=== PATIENT | female | born 1955 | race Caucasian/White ===

== ENCOUNTER 2016-10-08 11:48 | Outpatient (CLI) | payer OTHER ==
[2016-10-08 13:26] LABS: #Basophils 0.1 thou/uL (0.0-0.2); #Eosinphils 0.1 thou/uL (0.0-0.7); #Lymphocytes 2.5 thou/uL (1.20-3.40); #Monocytes 0.6 thou/uL (0.11-0.59); #Neutrophils 5.5 thou/uL (1.40-6.50); %Basophils 0.8 % (0.0-1.0); %Lymphocytes 28.4 % (21.0-51.0); Hematocrit 45.5 % (36.0-47.0); Mean Platelet Volume 8.1 fL (7.4-10.4); Red Blood Cell (RBC) Count 5.04 mill/uL (4.20-5.40); White Blood Cell (WBC) Count 8.8 thou/uL (4.8-10.8)
[2016-10-08 14:12] LABS: ALT (SGPT) 19 U/L (0-55); AST (SGOT) 9 U/L (5-34); Alkaline Phosphatase 119 U/L (40-150); Anion Gap 14 mmol/L (10-20); BUN (Urea Nitrogen) 19 mg/dL (9.8-20.1); Calc. Creatinine Clearance 0 mL/min (70-130); Calcium 9.2 mg/dL (7.8-10.44); Carbon Dioxide 25 mmol/L (23-31); Chloride 104 mmol/L (98-107); Estimated GFR-MDRD 54; Globulin 3.5 g/dL (2.4-3.5); LDL Cholesterol, Calculated 129 mg/dL; Protein, Total 7.5 g/dL (5.8-8.1)
== END 2016-10-08 11:49 | disposition home or self-care (01) ==
LOC: NAV LAB 11:48
PROVIDERS: ATTEND Family Medicine
DX: E03.9 Hypothyroidism, unspecified (principal); J44.9 Chronic obstructive pulmonary disease, unspecified; I10 Essential (primary) hypertension; F41.9 Anxiety disorder, unspecified
CPT/HCPCS: 36415; 80053; 80061; 84443; 85025

== ENCOUNTER 2017-02-11 11:37 | Outpatient (CLI) | payer OTHER ==
--- NOTE | 2017-02-11 14:50 | RAD ---
TWO VIEWS RIGHT HIP: Indication: Right hip pain. Comparison: None. FINDINGS: No acute fracture or subluxation is evident. There is mild degenerative arthrosis of the right hip. IMPRESSION: No acute osseous abnormality. POS: [facility]
--- NOTE | 2017-02-11 15:12 | RAD ---
EXAM: LUMBAR SPINE 3 VIEWS: HISTORY: Lumbar radiculopathy. COMPARISON: None. CORRELATION: Two-view chest radiograph 12/27/16. FINDINGS: There are 5 lumbar-type vertebral bodies. Stable mild compression fracture at L2. Sclerosis of the superior end plate of L3 likely on the basis of degenerative change. No acute fractures. No spond ylolisthesis of spondylosis. There are degenerative changes of the posterior elements at L5-L6 and L6-S1. Possible pseudoarthrosis of the right L6 ala with the sacrum. IMPRESSION: Chronic changes as above. POS: [facility]
== END 2017-02-11 11:38 | disposition home or self-care (01) ==
LOC: NAV RAD 11:37
PROVIDERS: ATTEND Family Medicine
DX: M47.27 Other spondylosis with radiculopathy, lumbosacral region (principal); M16.11 Unilateral primary osteoarthritis, right hip
CPT/HCPCS: 72100

== ENCOUNTER 2019-01-07 18:29 | Inpatient (IN) | payer OTHER ==
[2019-01-07] MEDS ORDERED: Senokot S 8.6-50 MG TAB PO PRN (20:37)
[2019-01-07] MEDS ORDERED: Diazepam 5 MG TAB PO PRN (20:37)
[2019-01-07] MEDS ORDERED: Calcium Carbonate 500 MG ChewTAB PO PRN (20:40)
[2019-01-07] MEDS ORDERED: Sodium Chloride 0.9% 10 ML ONE (21:22)
[2019-01-07] MEDS: Amlodipine 10 MG TAB PO SCH (21:29)
[2019-01-07] MEDS: hydrALAZINE 25 MG TAB PO SCH (21:30)
[2019-01-07] MEDS: Baclofen 10 MG TAB PO SCH (21:30)
[2019-01-07] MEDS: cefTRIAXone\\ROCEPHIN 2 GM VIAL IVPB SCH (21:30)
[2019-01-07] MEDS ORDERED: Sodium Chloride 0.9% 20 ML ONE (22:06)
[2019-01-07] MEDS: Vancomycin HCl 1 GM in Sodium Chloride 0.9% 250 ML 250 ML IVPB SCH (22:13)
[2019-01-07] MEDS: Vancomycin HCl 500 MG in Sodium Chloride 0.9% 100 ML IVPB SCH (23:12)
[2019-01-08] MEDS: Levothyroxine Sodium 100 MCG TAB PO SCH (05:22)
[2019-01-08] MEDS: HYDROcodone/Acetaminophen 10/325 mg Tablet PO PRN (05:23)
[2019-01-08 05:42] LABS: #Basophils 0.1 thou/uL (0.0-0.2); #Eosinphils 0.1 thou/uL (0.0-0.7); #Lymphocytes 1.6 thou/uL (1.20-3.40); #Monocytes 0.7 thou/uL (0.11-0.59); #Neutrophils 7.6 thou/uL (1.40-6.50); %Basophils 1.2 % (0.0-1.0); %Eosinophils 1.2 % (0.0-10.0); %Lymphocytes 16.2 % (21.0-51.0); %Monocytes 7.2 % (0.0-10.0); %Neutrophils 74.3 % (42.0-75.0); Hemoglobin 14.5 g/dL (12.0-16.0); Mean Corpuscular HGB CONC 30.8 g/dL (32.0-36.0); Mean Corpuscular Hemoglobin 27.8 pg (27.0-31.0); Mean Corpuscular Volume 90.2 fL (78.0-98.0); Mean Platelet Volume 7.4 fL (7.4-10.4); Platelet Count 320 thou/uL (130-400); RBC Distribution Width 14.5 % (11.5-14.5); Red Blood Cell (RBC) Count 5.22 mill/uL (4.20-5.40); White Blood Cell (WBC) Count 10.2 thou/uL (4.8-10.8)
[2019-01-08 05:46] LABS: ALT (SGPT) 58 U/L (8-55); AST (SGOT) 13 U/L (5-34); Albumin 3.7 g/dL (3.4-4.8); Alkaline Phosphatase 106 U/L (40-150); Anion Gap 14 mmol/L (10-20); BUN (Urea Nitrogen) 18 mg/dL (9.8-20.1); Bilirubin, Total 0.8 mg/dL (0.2-1.2); Calc. Creatinine Clearance 97 mL/min (70-130); Calcium 9.6 mg/dL (7.8-10.44); Carbon Dioxide 28 mmol/L (23-31); Chloride 103 mmol/L (98-107); Estimated GFR-MDRD 51; Globulin 3.2 g/dL (2.4-3.5); Glucose 103 mg/dL (80-115); Potassium 3.9 mmol/L (3.5-5.1); Protein, Total 6.9 g/dL (6.0-8.3); Sodium 141 mmol/L (136-145)
[2019-01-08] MEDS: Baclofen 10 MG TAB PO SCH ×2 (08:31→20:44)
[2019-01-08] MEDS: Lisinopril 20 MG TAB PO SCH (08:31)
[2019-01-08] MEDS: Enoxaparin Sodium 40 MG/0.4 ML SYRINGE SC SCH (08:31)
[2019-01-08] MEDS: hydrALAZINE 25 MG TAB PO SCH ×3 (08:32→20:44)
[2019-01-08] MEDS: Vancomycin HCl 1 GM in Sodium Chloride 0.9% 250 ML 250 ML IVPB SCH ×2 (09:39→21:23)
[2019-01-08] MEDS: Vancomycin HCl 500 MG in Sodium Chloride 0.9% 100 ML IVPB SCH ×2 (09:40→21:24)
[2019-01-08] MEDS: Ibuprofen 200 MG TAB PO PRN (10:18)
--- NOTE | 2019-01-08 10:37 | HP ---
CHIEF COMPLAINT: Back pain. HISTORY OF PRESENT ILLNESS: The patient is a 63-year-old female, who initially presented to [facility] with 2 weeks of worsening back pain. She had noted that she started needing to use a cane due to her back pain and that progressed to using a walker and then she progressed to not being able to walk at all. She noted that her back pain was nonradiating and sharp in nature. She denied fever, chills, trauma, night sweats, bowel incontinence. The patient was admitted for pain control and underwent an MRI which showed findings suspicious for osteomyelitis or diskitis at L2-L3. The patient was started on IV vancomycin and Rocephin. Neurosurgery was consulted, who advised proceeding with IV antibiotics as no surgery was indicated at that time. She had a consult with Dr. Berumen who agreed with the antibiotic choices, antibiotic should run through 02/16. The patient has been transferred to [facility] for IV antibiotics and physical therapy. ALLERGIES: NO KNOWN DRUG ALLERGIES. PAST MEDICAL HISTORY: 1. Hypertension. 2. History of pelvic fracture. 3. Hypothyroidism. PAST SURGICAL HISTORY: None. FAMILY HISTORY: Mother has history of osteoporosis. SOCIAL HISTORY: The patient denies tobacco, alcohol, and other drug use. MEDICATIONS: 1. [place] 10/325 1 to 2 tabs p.o. q.6 hours p.r.n. pain. 2. Amlodipine 10 mg p.o. daily. 3. Baclofen 20 mg p.o. b.i.d. 4. Rocephin 2 g IV daily. 5. Diazepam 5 mg p.o. 4 times a day as needed. 6. Hydralazine 25 mg p.o. t.i.d. 7. Toradol 50 mg IV q.6 hours p.r.n. pain. 8. Levothyroxine 100 mcg p.o. q.a.m. 9. Lisinopril 40 mg p.o. daily. 10. Metoprolol succinate 100 mg p.o. daily. 11. IV vancomycin with pharmacy to dose. REVIEW OF SYSTEMS: GENERAL: Negative for fever, chills, or night sweats. EYES: Negative for vision changes or eye pain. HENT: Negative for sore throat, rhinorrhea, and nasal congestion. CARDIOVASCULAR: Negative for chest pain, palpitations, orthopnea, and PND. RESPIRATORY: Negative for shortness of breath, wheezing and cough. GI: Negative for abdominal pain, nausea, vomiting, or diarrhea. : Negative for dysuria or polyuria. MUSCULOSKELETAL: Positive for nonradiating back pain today, worse on the right than the left, and generalized weakness. SKIN: Negative for rashes or lesions/ PSYCHIATRIC: Negative for anxiety or depression. NEUROLOGIC: Negative for syncope, seizure, numbness, and tingling. PHYSICAL EXAMINATION: VITAL SIGNS: Temp 97.8, pulse 60, respiration rate 20, O2 saturation 95% on room air, blood pressure 135/86. GENERAL: The patient is awake, alert, oriented, in no acute distress. EYES: Pupils are equal, round, reactive to light and accommodation, extraocular muscles are intact. HENT: Oropharynx and nasopharynx are without erythema or exudate. NECK: Supple without lymphadenopathy, thyromegaly or bruits. CARDIOVASCULAR: Regular rate and rhythm without murmurs, gallops, or rubs. LUNGS: Clear to auscultation bilaterally without wheezing or rhonchi. ABDOMEN: Soft, nontender, nondistended, with bowel sounds present. EXTREMITIES: There is no clubbing, cyanosis, or edema. MUSCULOSKELETAL: The patient has full range of motion of all extremities with back pain noted on most movements. SKIN: Negative for rashes or jaundice. NEUROLOGIC: Cranial nerves 2 through 12 are grossly intact, deep tendon reflexes 2/4. Unable to assess gait at this time. PSYCHIATRIC: The patient displays an appropriate mood and affect. LABORATORY DATA: 1. CBC: WBCs 10.2, hemoglobin 14.5, hematocrit 47.1, platelet count 320. 2. CMP: Sodium 141, potassium 3.9, chloride 103, bicarb 28, BUN 18, creatinine 1.08, glucose 103, calcium 9.6, total bilirubin 0.8, AST 13, ALT 58, total protein 6.9, albumin 3.7. 3. CRP 3.26 which is down from 4.6 on the 7th. ASSESSMENT AND PLAN: 1. Osteomyelitis of the lumbar spine: The patient will continue on vancomycin and Rocephin until 02/16. Pharmacy will continue to dose the vancomycin. The patient will get weekly CBC, CMP, and CRP per Dr. Berumen' recommendations. 2. Generalized deconditioning: The patient will begin to work with PT and OT to help regain her mobility. 3. Intractable low back pain: The patient has multiple medications on to help with back pain including baclofen for her muscle spasms, [place] for severe pain. Tramadol is also available. 4. Hypertension: We will continue her home medications and adjust as needed. 5. Hypothyroidism: Continue thyroid supplementation. 6. Deep vein thrombosis prophylaxis with Lovenox. Job ID: [id number]
[2019-01-08] MEDS: cefTRIAXone\\ROCEPHIN 2 GM VIAL IVPB SCH (20:43)
[2019-01-08] MEDS: Amlodipine 10 MG TAB PO SCH (20:45)
[2019-01-09] MEDS: Levothyroxine Sodium 100 MCG TAB PO SCH (05:24)
[2019-01-09] MEDS: HYDROcodone/Acetaminophen 10/325 mg Tablet PO PRN (08:40)
[2019-01-09] MEDS: hydrALAZINE 25 MG TAB PO SCH ×3 (08:45→20:37)
[2019-01-09] MEDS: Lisinopril 20 MG TAB PO SCH (08:46)
[2019-01-09] MEDS: Baclofen 10 MG TAB PO SCH ×2 (08:47→20:37)
[2019-01-09] MEDS: Enoxaparin Sodium 40 MG/0.4 ML SYRINGE SC SCH (08:49)
[2019-01-09 09:44] LABS: Vancomycin, Trough 23.2 ug/mL
[2019-01-09] MEDS: Ketorolac Tromethamine 30 MG/ML VIAL IVP PRN (10:07)
[2019-01-09] MEDS: Vancomycin HCl 500 MG in Sodium Chloride 0.9% 100 ML IVPB SCH ×2 (10:13→21:26)
[2019-01-09] MEDS: Vancomycin HCl 1 GM in Sodium Chloride 0.9% 250 ML 250 ML IVPB SCH ×2 (10:14→21:27)
--- NOTE | 2019-01-09 12:44 | PRG ---
DATE OF SERVICE: 01/09/2019 SUBJECTIVE: The patient is a 63-year-old female who is at [facility] for long-term IV antibiotics for osteomyelitis in the spine. Her primary complaint this morning is back spasms and that she is almost scared to get up and sit on the side of the bed or sit up in the chair because she thinks that the spasms will be coming. She does have baclofen on board and has noticed an improvement with that. OBJECTIVE: VITAL SIGNS: Temperature 98.3, pulse 62, respiration rate 16, O2 saturation 96% on room air, and blood pressure 143/84. GENERAL: The patient is awake, alert, oriented, in no acute distress. CARDIOVASCULAR: Regular rate and rhythm without murmurs, gallops, or rubs. LUNGS: Clear to auscultation bilaterally without wheezing or rhonchi. ABDOMEN: Soft, nontender, and nondistended. Bowel sounds present. EXTREMITIES: There is no clubbing, cyanosis, or edema. PSYCHIATRIC: The patient displays appropriate mood and affect. LABORATORY DATA: Vanc trough was 23.2. ASSESSMENT AND PLAN: 1. Osteomyelitis of the lumbar spine: The patient will continue IV vancomycin and Rocephin until February 16. She is getting weekly CBC, CMP, CRP, and routine vanc troughs. 2. Generalized deconditioning: We will continue physical therapy as the patient has not been ambulating much. 3. Back pain and back spasming: The patient has multiple medications including [place], baclofen, and Toradol to help with pain and spasms. 4. Hypertension: We will continue current medications for blood pressure control. We anticipate that some of her hypertension currently is due to her pain. 5. Hypothyroidism: Continue supplementation. 6. Deep venous thrombosis prophylaxis with Lovenox. Job ID: [id number]
[2019-01-09] MEDS: Amlodipine 10 MG TAB PO SCH (20:37)
[2019-01-09] MEDS: cefTRIAXone\\ROCEPHIN 2 GM VIAL IVPB SCH (20:38)
[2019-01-09] MEDS: Ibuprofen 200 MG TAB PO PRN (20:38)
[2019-01-10] MEDS: Ibuprofen 200 MG TAB PO PRN ×2 (04:11→16:09)
[2019-01-10] MEDS: Baclofen 10 MG TAB PO SCH ×2 (09:21→20:57)
[2019-01-10] MEDS: Enoxaparin Sodium 40 MG/0.4 ML SYRINGE SC SCH (09:22)
[2019-01-10] MEDS: hydrALAZINE 25 MG TAB PO SCH ×3 (09:23→20:57)
[2019-01-10] MEDS: Lisinopril 20 MG TAB PO SCH (09:23)
[2019-01-10] MEDS: Levothyroxine Sodium 100 MCG TAB PO SCH (09:43)
[2019-01-10] MEDS: Vancomycin HCl 1 GM in Sodium Chloride 0.9% 250 ML 250 ML IVPB SCH ×2 (09:45→21:47)
[2019-01-10] MEDS: Vancomycin HCl 500 MG in Sodium Chloride 0.9% 100 ML IVPB SCH ×2 (09:46→21:47)
[2019-01-10] MEDS: Diazepam 5 MG TAB PO PRN (16:10)
[2019-01-10] MEDS: Amlodipine 10 MG TAB PO SCH (20:58)
[2019-01-10] MEDS: cefTRIAXone\\ROCEPHIN 2 GM VIAL IVPB SCH (20:58)
[2019-01-11] MEDS: Diazepam 5 MG TAB PO PRN (00:35)
[2019-01-11] MEDS: Levothyroxine Sodium 100 MCG TAB PO SCH (05:58)
[2019-01-11] MEDS: Ibuprofen 200 MG TAB PO PRN (06:01)
[2019-01-11] MEDS: hydrALAZINE 25 MG TAB PO SCH ×3 (09:17→21:09)
[2019-01-11] MEDS: Lisinopril 20 MG TAB PO SCH (09:18)
[2019-01-11] MEDS: Baclofen 10 MG TAB PO SCH ×2 (09:19→21:09)
[2019-01-11] MEDS: Enoxaparin Sodium 40 MG/0.4 ML SYRINGE SC SCH (09:21)
[2019-01-11] MEDS: Vancomycin HCl 1 GM in Sodium Chloride 0.9% 250 ML 250 ML IVPB SCH ×2 (10:53→21:42)
[2019-01-11] MEDS: Vancomycin HCl 500 MG in Sodium Chloride 0.9% 100 ML IVPB SCH ×2 (10:54→21:42)
[2019-01-11] MEDS: HYDROcodone/Acetaminophen 10/325 mg Tablet PO PRN (15:25)
[2019-01-11] MEDS: cefTRIAXone\\ROCEPHIN 2 GM VIAL IVPB SCH (21:07)
[2019-01-11] MEDS: Amlodipine 10 MG TAB PO SCH (21:09)
[2019-01-12] MEDS: Ibuprofen 200 MG TAB PO PRN (05:20)
[2019-01-12] MEDS: Levothyroxine Sodium 100 MCG TAB PO SCH (05:20)
[2019-01-12] MEDS: HYDROcodone/Acetaminophen 10/325 mg Tablet PO PRN (08:08)
[2019-01-12] MEDS: Baclofen 10 MG TAB PO SCH ×2 (08:11→20:32)
[2019-01-12] MEDS: Lisinopril 20 MG TAB PO SCH (08:13)
[2019-01-12] MEDS: hydrALAZINE 25 MG TAB PO SCH ×3 (08:13→20:32)
[2019-01-12] MEDS: Enoxaparin Sodium 40 MG/0.4 ML SYRINGE SC SCH (08:14)
[2019-01-12] MEDS: Vancomycin HCl 1 GM in Sodium Chloride 0.9% 250 ML 250 ML IVPB SCH ×2 (09:23→21:11)
[2019-01-12] MEDS: Vancomycin HCl 500 MG in Sodium Chloride 0.9% 100 ML IVPB SCH ×2 (09:33→21:11)
--- NOTE | 2019-01-12 13:11 | PRG ---
DATE OF SERVICE: 01/11/2019 SUBJECTIVE: The patient is a 63-year-old female, who is at [facility] for IV antibiotics for osteomyelitis in the lumbar spine. The patient has an area on her dorsal left foot that is erythematous and tender. She notes that this began about a day ago and it is a little bit better than before. She does not remember any specific injury to this area. OBJECTIVE: VITAL SIGNS: Temperature 96.7, pulse 62, respiration rate 16, O2 saturation 96% on room air, and blood pressure 158/94. GENERAL: The patient is awake, alert, oriented, in no acute distress. CARDIOVASCULAR: Regular rate and rhythm without murmurs, gallops, or rubs. LUNGS: Clear to auscultation bilaterally without wheezing or rhonchi. ABDOMEN: Soft, nontender, nondistended. Bowel sounds present. EXTREMITIES: There is no clubbing or cyanosis. SKIN: There is a small silver dollar sized area of erythema on the dorsal aspect of the patient's left foot that has no warmth, but is mildly tender to palpation. There is no fluctuance or induration either. Homans sign is negative. PSYCHIATRIC: The patient displays an appropriate mood and affect. ASSESSMENT AND PLAN: 1. Osteomyelitis: We will continue IV vancomycin and Rocephin until February 16. The patient will be due for repeat labs this coming . 2. Hypertension: Continue current medications. 3. Hypothyroidism: Continue supplementation. 4. Left foot pain: This does not resemble gout and the pain is beginning to improve. We will continue to monitor, and if it worsens, may consider an ultrasound of the lower extremity. Pulses are palpable, however. 5. Generalized deconditioning: Continue therapy in hopes to get the patient up and moving a bit more. 6. Back pain and spasms: The patient will continue current pain medication regimen along with muscle relaxers. 7. Deep venous thrombosis prophylaxis with Lovenox. Job ID: [id number]
--- NOTE | 2019-01-12 13:18 | PRG ---
DATE OF SERVICE: 01/12/2019 SUBJECTIVE: The patient is a 63-year-old female, who is undergoing IV antibiotics for osteomyelitis. The patient states that her left foot pain is much better this morning and the redness has gone away. OBJECTIVE: VITAL SIGNS: Temp 96.2, pulse 70, respiration rate 18, O2 saturation 96% on room air, blood pressure 128/78. GENERAL: The patient is awake, alert, and oriented, in no acute distress. CARDIOVASCULAR: Regular rate and rhythm without murmurs, gallops, or rubs. LUNGS: Clear to auscultation bilaterally without wheezing or rhonchi. ABDOMEN: Soft, nontender, nondistended with bowel sounds present. EXTREMITIES: There is no clubbing, cyanosis, or edema. PSYCHIATRIC: The patient displays an appropriate mood and affect, but she does appear anxious at time when talking about the potential for back spasms. ASSESSMENT AND PLAN: 1. Osteomyelitis of the lumbar spine: Continue IV vanc and Rocephin until February 16. Vanc troughs were ordered through pharmacy. 2. Generalized deconditioning: The patient will continue therapy. She does begin to get anxious when thinking about getting up as she is anticipating having back pain and spasming, but there are p.r.n. medications for anxiety available. 3. Back pain: Continue [place] and Toradol as well as baclofen for spasms. 4. Hypertension: We will continue current medications. 5. Hypothyroidism. Continue supplementation. 6. Foot pain: This has improved. 7. Deep vein thrombosis prophylaxis. We will continue Lovenox. 8. Dr. Lia Castro will be on-call for me starting tomorrow, January 13 through January 18. Job ID: [id number] MTDD
[2019-01-12] MEDS: Ketorolac Tromethamine 30 MG/ML VIAL IVP PRN (14:23)
[2019-01-12] MEDS: Amlodipine 10 MG TAB PO SCH (20:30)
[2019-01-12] MEDS: cefTRIAXone\\ROCEPHIN 2 GM VIAL IVPB SCH (20:32)
[2019-01-13] MEDS: Ibuprofen 200 MG TAB PO PRN ×2 (05:47→20:23)
[2019-01-13] MEDS: Levothyroxine Sodium 100 MCG TAB PO SCH (05:47)
[2019-01-13] MEDS ORDERED: Ketorolac Tromethamine 30 MG/ML VIAL IVP PRN (06:31)
[2019-01-13] MEDS: Lisinopril 20 MG TAB PO SCH (08:56)
[2019-01-13] MEDS: Enoxaparin Sodium 40 MG/0.4 ML SYRINGE SC SCH (08:57)
[2019-01-13] MEDS: Baclofen 10 MG TAB PO SCH ×2 (08:57→20:29)
[2019-01-13] MEDS: hydrALAZINE 25 MG TAB PO SCH ×3 (08:57→20:22)
[2019-01-13] MEDS: Vancomycin HCl 1 GM in Sodium Chloride 0.9% 250 ML 250 ML IVPB SCH ×2 (08:58→21:22)
[2019-01-13] MEDS: Vancomycin HCl 500 MG in Sodium Chloride 0.9% 100 ML IVPB SCH ×2 (08:58→21:22)
[2019-01-13] MEDS: HYDROcodone/Acetaminophen 10/325 mg Tablet PO PRN (09:05)
[2019-01-13 10:32] LABS: Vancomycin, Random 47.4 ug/mL (See Comment)
[2019-01-13] MEDS: Diazepam 5 MG TAB PO PRN (12:21)
--- NOTE | 2019-01-13 12:51 | PRG ---
DATE OF SERVICE: 01/13/2019 SUBJECTIVE: Ms. English is a 63-year-old female, who is presently admitted at [facility] for prolonged IV antibiotics due to lumbar osteomyelitis/ diskitis and severe deconditioning. She is doing well today. Denies any acute changes overnight. The patient denies any fevers. Reports pain is controlled with oral medications. Occasionally requires IV medication with physical therapy. However, after physical therapy this morning did not require IV medication. Reports last bowel movement was a couple of days ago (01/06/19 per nursing notes). Discussed complications related to constipation and pain medication used. Discussed options of stool softeners and laxatives. OBJECTIVE: VITAL SIGNS: Temperature 98.1, pulse 73 and sinus rhythm, blood pressure 141/83, respiratory rate 16, O2 saturations on room air 96%. GENERAL: The patient is awake, alert, and oriented to person, place, time, and event. No acute distress noted. The patient is lying comfortably in bed. HEENT: Extraocular muscles intact. Normal conjunctivae. Pupils are equal, round, and reactive. CARDIOVASCULAR: Regular rate and rhythm. No murmurs appreciated. LUNGS: Clear to auscultation bilaterally. No wheezing, crackles, or rhonchi appreciated. ABDOMEN: Soft, nontender, and nondistended. Bowel sounds present. EXTREMITIES: Full range of motion of her extremities. No clubbing, cyanosis, or edema noted. PSYCHIATRIC: The patient has appropriate mood and affect. Maintained good eye contact. No anxiety noted. Very cheerful with good outlook. ASSESSMENT AND PLAN: 1. Lumbar osteomyelitis/diskitis: The patient is currently receiving IV vancomycin along with Rocephin for treatment. Dr. Berumen has been following remotely. We will continue to trend labs including CBC and CRP for signs of worsening and improvement of infection. Currently, Pharmacy is dosing vancomycin. Most recent random vancomycin at 01/13/2019 at 09:24 a.m., was 47.4 but was improperly collected during Vancomycin infusion. The patient appears to be tolerating treatment well without side effects. Continues to show no signs or symptoms of systemic infection. 2. Severe deconditioning: Continued daily physical therapy. She is slowly continuing to improve. Yesterday, she was able to walk the halls with a walker. Currently requires a lot of assistance. We will continue to closely monitor the patient's progress. PT daily. 3. Pain control: The patient is currently on narcotics, NSAIDs, and Tylenol for pain control. Currently controlled with p.o. pain medication, occasionally will require IV pain medication after physical therapy. Concern for opioid related constipation. Discussed with the patient extensively at bedside. We will start daily stool softeners. Does have p.r.n. laxatives as needed. 4. Hypertension: The patient currently stable on home medications. However, blood pressure elevated this morning. We will continue to monitor throughout the day and adjust home blood pressure medications as needed for goal of blood pressure less than 130/80. 5. Hypothyroidism. We will continue home dose levothyroxine. Monitor TSH as needed. 6. Foot pain and rash: Has resolved, no longer an issue. 7. Deep venous thrombosis prophylaxis. The patient currently on Lovenox. Will continue to encourage ambulation. SCDs if patient not able to ambulate. Tariq Score = 5 ( reduced mobility, acute infection, BMI >30). DISPOSITION: Will continue IV antibiotics until February 16. Currently, the patient unable to perform ADLs without max assistance. Trend CBC, CMP, and CRP weekly. Add TSH this week. Job ID: [id number] MTDD
[2019-01-13] MEDS: Amlodipine 10 MG TAB PO SCH (20:21)
[2019-01-13] MEDS: cefTRIAXone\\ROCEPHIN 2 GM VIAL IVPB SCH (20:22)
[2019-01-13] MEDS: Docusate 100 MG CAP PO PRN (20:23)
[2019-01-14] MEDS: Ibuprofen 200 MG TAB PO PRN ×3 (05:14→20:03)
[2019-01-14] MEDS: Levothyroxine Sodium 100 MCG TAB PO SCH (05:14)
[2019-01-14] MEDS: Baclofen 10 MG TAB PO SCH ×2 (08:18→20:02)
[2019-01-14] MEDS: Enoxaparin Sodium 40 MG/0.4 ML SYRINGE SC SCH (08:18)
[2019-01-14] MEDS: Lisinopril 20 MG TAB PO SCH (08:19)
[2019-01-14] MEDS: hydrALAZINE 25 MG TAB PO SCH ×3 (08:19→20:03)
[2019-01-14] MEDS: HYDROcodone/Acetaminophen 10/325 mg Tablet PO PRN (08:24)
[2019-01-14 09:51] LABS: Vancomycin, Trough 23.1 ug/mL
[2019-01-14] MEDS ORDERED: Vancomycin HCl 1 GM in Sodium Chloride 0.9% 250 ML 250 ML IVPB SCH (10:00)
[2019-01-14] MEDS: Vancomycin HCl 500 MG in Sodium Chloride 0.9% 100 ML IVPB SCH ×3 (10:11→22:05)
[2019-01-14] MEDS: Vancomycin HCl 1 GM in Sodium Chloride 0.9% 250 ML 250 ML IVPB SCH (10:11)
[2019-01-14] MEDS: Vancomycin HCl 750 MG in Sodium Chloride 0.9% 250 ML 250 ML IVPB SCH ×2 (10:36→23:01)
[2019-01-14] MEDS: Diazepam 5 MG TAB PO PRN ×2 (13:15→22:04)
[2019-01-14] MEDS: Amlodipine 10 MG TAB PO SCH (20:02)
[2019-01-14] MEDS: Docusate 100 MG CAP PO PRN (20:03)
[2019-01-14] MEDS: cefTRIAXone\\ROCEPHIN 2 GM VIAL IVPB SCH (20:03)
[2019-01-14] MEDS ORDERED: Polyethylene Glycol 3350 17 GM Packet PO PRN (20:54)
[2019-01-14] MEDS: Docusate 100 MG CAP PO SCH (21:05)
--- NOTE | 2019-01-14 22:57 | PRG ---
DATE OF SERVICE: 01/14/2019 INTRODUCTION: Mrs. English is a 63-year-old female who is admitted for prolonged IV antibiotics due to lumbar osteomyelitis/diskitis and severe deconditioning. INTERVAL HISTORY: Mrs. English reports she is doing well today. No changes overnight. The patient was able to ambulate 150 steps with physical therapy. No back spasms. Only used IV pain medications once. Otherwise, pain was controlled with p.o. medications. The patient has not had a bowel movement yet. The patient was reluctant yesterday to start stool softener. Encouraged the patient to start stool softener today. Discussed risk for narcotics-induced constipation and therefore complications related. Questions answered. LABS: Vanc trough pending. PHYSICAL EXAMINATION: VITAL SIGNS: Temperature 97.7; pulse 66, normal sinus rhythm; respiratory rate 20; O2 saturation 96% on room air; blood pressure 160/85. GENERAL: The patient is awake, alert, and oriented to person, place, time, and event. No acute distress noted. Non-ill appearing. The patient is lying comfortably in bed. HEENT: Atraumatic, normocephalic. Extraocular muscles intact. Normal conjunctivae. Pupils equal, round, and reactive to light. Moist mucous membranes. CARDIOVASCULAR: Regular rate and rhythm. No murmurs appreciated. LUNGS: Clear to auscultation bilaterally. No wheezes, crackles, or rhonchi appreciated. ABDOMEN: Soft, nontender, and nondistended. Bowel sounds present in all 4 quadrants. EXTREMITIES: Full range of motion in all 4 extremities. No clubbing, cyanosis , or edema noted. PSYCHIATRIC: Appropriate mood and affect. Mood is happy. Maintains eye contact. Good outlook for today. ASSESSMENT AND PLAN: 1. Lumbar osteomyelitis/diskitis: Will continue receiving IV vancomycin and Rocephin for treatment. Labs to be repeated and trended tomorrow morning. Non- ill appearing. No signs or symptoms of systemic infection. Vancomycin is being dosed by Pharmacy. Repeat troughs to be drawn later this morning. Medication would be adjusted based on trough value with goal of 20. IV antibiotics to be continued until 02/16/2019. 2. Severe deconditioning: Continue daily physical therapy. The patient progressed well yesterday, able to ambulate 150 feet. Continue to encourage the patient to ambulate. 3. Pain control: Currently controlled on p.o. medications. Discussed narcotics-induced constipation. The patient to start stool softener b.i.d. 4. Hypertension: Blood pressure elevated 140s, 160 systolic. Diastolics averaging in the 80s. Discussed changing some home blood pressure medications for optimal control since the patient would be hospitalized for a long duration. We will attempt to set goal less 130/80. Patient ok with plan. 5. Hypothyroidism: TSH to be added to labs for morning. Continue current dose of levothyroxine. The patient remains asymptomatic. 6. Prophylaxis. The patient is currently on Lovenox for DVT prophylaxis as well as p.r.n. use of antacid for any GI issues. DISPOSITION: Continue current admission status. Continue IV antibiotics until 02/16/2019. Repeat labs . Job ID: [id number] MTDD
[2019-01-15] MEDS: HYDROcodone/Acetaminophen 10/325 mg Tablet PO PRN ×3 (00:22→18:01)
[2019-01-15] MEDS: Ibuprofen 200 MG TAB PO PRN ×2 (05:19→21:02)
[2019-01-15] MEDS: Levothyroxine Sodium 100 MCG TAB PO SCH (05:19)
[2019-01-15 05:24] LABS: #Basophils 0.1 thou/uL (0.0-0.2); #Eosinphils 0.3 thou/uL (0.0-0.7); #Lymphocytes 1.7 thou/uL (1.20-3.40); #Monocytes 0.7 thou/uL (0.11-0.59); #Neutrophils 5.2 thou/uL (1.40-6.50); %Eosinophils 3.4 % (0.0-10.0); %Lymphocytes 21.5 % (21.0-51.0); %Monocytes 8.3 % (0.0-10.0); %Neutrophils 65.8 % (42.0-75.0); Hemoglobin 12.1 g/dL (12.0-16.0); Mean Corpuscular HGB CONC 30.9 g/dL (32.0-36.0); Mean Corpuscular Volume 90.3 fL (78.0-98.0); Mean Platelet Volume 7.8 fL (7.4-10.4); Platelet Count 242 thou/uL (130-400); RBC Distribution Width 13.7 % (11.5-14.5); Red Blood Cell (RBC) Count 4.32 mill/uL (4.20-5.40); White Blood Cell (WBC) Count 7.8 thou/uL (4.8-10.8)
[2019-01-15 05:41] LABS: ALT (SGPT) 19 U/L (8-55); AST (SGOT) 10 U/L (5-34); Albumin 3.2 g/dL (3.4-4.8); Alkaline Phosphatase 76 U/L (40-150); Anion Gap 13 mmol/L (10-20); BUN (Urea Nitrogen) 18 mg/dL (9.8-20.1); Bilirubin, Total 0.5 mg/dL (0.2-1.2); CRP (Inflammatory) 4.28 mg/dL (= or < 0.5); Calc. Creatinine Clearance 116 mL/min (70-130); Calcium 9.1 mg/dL (7.8-10.44); Carbon Dioxide 24 mmol/L (23-31); Chloride 107 mmol/L (98-107); Estimated GFR-MDRD 63; Globulin 2.8 g/dL (2.4-3.5); Glucose 93 mg/dL (80-115); Potassium 3.6 mmol/L (3.5-5.1); Sodium 140 mmol/L (136-145)
[2019-01-15] MEDS: Baclofen 10 MG TAB PO SCH ×2 (08:39→20:58)
[2019-01-15] MEDS: Chlorthalidone 25 MG TAB PO SCH (08:39)
[2019-01-15] MEDS: hydrALAZINE 25 MG TAB PO SCH ×3 (08:40→20:58)
[2019-01-15] MEDS: Docusate 100 MG CAP PO SCH ×2 (08:40→20:58)
[2019-01-15] MEDS: Enoxaparin Sodium 40 MG/0.4 ML SYRINGE SC SCH (08:40)
[2019-01-15] MEDS: Lisinopril 20 MG TAB PO SCH (08:40)
[2019-01-15] MEDS: Vancomycin HCl 750 MG in Sodium Chloride 0.9% 250 ML 250 ML IVPB SCH (10:38)
[2019-01-15] MEDS: Vancomycin HCl 500 MG in Sodium Chloride 0.9% 100 ML IVPB SCH ×2 (10:38→23:19)
[2019-01-15] MEDS ORDERED: Lidocaine 5% Patch TD PRN (10:52)
[2019-01-15] MEDS ORDERED: Lidocaine 5% Patch TD SCH (11:30)
[2019-01-15] MEDS: valACYclovir 500 MG TAB PO SCH ×2 (11:32→20:56)
[2019-01-15] MEDS: Nystatin Cream 15 GM TUBE TOP SCH ×2 (11:33→20:57)
--- NOTE | 2019-01-15 12:05 | PRG ---
DATE OF SERVICE: 01/15/2019 INTRODUCTION: Ms. English is a 63-year-old female, who is admitted for prolonged IV antibiotics due to lumbar osteomyelitis/diskitis and severe deconditioning. Skilled day #8. INTERVAL HISTORY: Ms. English reports she continues to do well today. No complications overnight, reports that she slept well, however, did have significant pain after showering this morning. Continues to do well with physical therapy. Mild back spasms this morning after showering and prolonged standing. Was able to ambulate to the bathroom, back to the floor yesterday without much complications. Pain is still controlled with p.o. pain medications; however, she is concerned with current state of pain along with physical therapy later today that pain might not be controlled. Discussed options with the patient. The patient does report a bowel movement yesterday that was soft and formed. She is also concerned about prodrome symptoms of fever blisters on her lips. She does have a history. No lesions at present. The patient is also concerned about a red itchy patch to upper gluteal cleft that has been present over the past few days. No discharge, ulceration, or drainage. PHYSICAL EXAMINATION: VITAL SIGNS: Temperature 97.7; pulse 60, normal sinus rhythm; respiratory rate 18; 96% on room air; blood pressure 157/85. GENERAL: The patient is awake, alert, and oriented to person, place, time, and event. Non-ill appearing. Lying comfortably in bed. Able to roll to left and right side this morning. HEENT: Atraumatic, normocephalic. Extraocular muscles intact. Pupils equal, round, and reactive to light. Normal conjunctivae. Moist mucous membranes noted. CARDIOVASCULAR: Regular rate and rhythm on exam today. No murmurs appreciated. LUNGS: Clear to auscultation bilaterally. No wheezes, crackles, or rhonchi appreciated. Good air movement. No evidence of respiratory distress. ABDOMEN: Soft, nontender, and nondistended. Bowel sounds present in all 4 quadrants. EXTREMITIES: Full range of motion in all 4 extremities. No clubbing, cyanosis , or edema noted. SKIN: No evidence of ulcerations, papules, or pustules to lips. Significant erythema as well as satellite lesions noted to superior gluteal cleft. Sharp borders noted. Evidence of excoriation noted. PSYCHIATRIC: Appropriate mood and affect. Does appear to be in pain currently. Note, good outlook for today. LABORATORY DATA: 1. CBC: White blood cell count 7.8, hemoglobin 12.1, hematocrit 39.0, MCV 90.3 , and platelets 242. 2. CMP: Sodium 140, potassium 3.6, chloride 107, carbon dioxide 24, BUN 18, creatinine 0.90, glucose 93. AST 10, ALT 19, albumin 3.2. 3. TSH 1.4976. 4. C-reactive protein 4.28. 5. Vancomycin trough on 01/14/2019 at 0900 hours of 23.1. ASSESSMENT AND PLAN: 1. Lumbar osteomyelitis/diskitis: Tolerating treatment well. We will continue with IV vancomycin and Rocephin. The patient to complete antibiotics on 02/16/2019. Vancomycin at goal. Continue to dose by Pharmacy. Labs reviewed and stable. Still no evidence of systemic infection. 2. Severe deconditioning: The patient continues to improve. Encourage to sit in chair and ambulate frequently throughout the day today. Physical Therapy to come back shortly. 3. Pain control: We will continue current p.o. pain medications and IV pain medications as needed. We will add lidocaine patch. 4. Constipation: The patient with one bowel movement yesterday. We will continue stool softeners daily. Discuss goal of soft-formed stools. MiraLAX p.r.n. 5. Hypertension: Blood pressure not at goal. We will add chlorthalidone to blood pressure regimen. Continue to closely monitor. 6. Hypothyroidism: TSH at goal. Continue current dose of levothyroxine. 7. BMI of 40: The patient now on 4 blood pressure medications would be concerned due to BMI and history of uncontrolled hypertension, undiagnosed obstructive sleep apnea. We will need sleep study for followup. 8. Herpes labialis: Currently with prodrome symptoms, we will treat with valacyclovir 2 g b.i.d. x1 day. 9. [place] intertrigo: We will treat with topical nystatin cream. Add powder if needed. If resistant, we will convert to oral fluconazole treatment. The patient to watch for other areas of outbreak. Discuss possible oral contamination. Hygiene efforts discussed. 10. Prophylaxis: The patient currently on Lovenox for deep vein thrombosis prophylaxis as well as p.r.n. use of antacids for GI issues. Sequential compression devices while not ambulating. Ambulation recommended at least t.i.d. now that the patient able to tolerate. DISPOSITION: Continue current admission status. IV antibiotics until 2018. Labs to be repeated weekly. Job ID: [id number] MTDD
[2019-01-15] MEDS: Diazepam 5 MG TAB PO PRN (13:37)
[2019-01-15] MEDS: cefTRIAXone\\ROCEPHIN 2 GM VIAL IVPB SCH (20:55)
[2019-01-15] MEDS: Amlodipine 10 MG TAB PO SCH (20:58)
[2019-01-15] MEDS: Lidocaine Patch Removal 1 EACH TOP SCH (20:58)
[2019-01-15] MEDS ORDERED: valACYclovir 500 MG TAB PO SCH (21:00)
[2019-01-15 22:15] LABS: Vancomycin, Trough 20.6 ug/mL
[2019-01-16] MEDS: Vancomycin HCl 750 MG in Sodium Chloride 0.9% 250 ML 250 ML IVPB SCH ×2 (00:32→11:35)
[2019-01-16] MEDS: Levothyroxine Sodium 100 MCG TAB PO SCH (05:38)
[2019-01-16] MEDS: Diazepam 5 MG TAB PO PRN ×2 (05:54→13:13)
[2019-01-16] MEDS: valACYclovir 500 MG TAB PO SCH (08:59)
[2019-01-16] MEDS: Docusate 100 MG CAP PO SCH ×2 (09:02→21:03)
[2019-01-16] MEDS: Baclofen 10 MG TAB PO SCH ×2 (09:04→21:03)
[2019-01-16] MEDS: Lisinopril 20 MG TAB PO SCH (09:04)
[2019-01-16] MEDS: hydrALAZINE 25 MG TAB PO SCH ×3 (09:05→21:04)
[2019-01-16] MEDS: Chlorthalidone 25 MG TAB PO SCH (09:06)
[2019-01-16] MEDS: Enoxaparin Sodium 40 MG/0.4 ML SYRINGE SC SCH (09:07)
[2019-01-16] MEDS: Nystatin Cream 15 GM TUBE TOP SCH ×2 (09:08→21:03)
[2019-01-16] MEDS: Vancomycin HCl 500 MG in Sodium Chloride 0.9% 100 ML IVPB SCH ×2 (10:27→22:57)
[2019-01-16] MEDS: HYDROcodone/Acetaminophen 10/325 mg Tablet PO PRN (16:14)
--- NOTE | 2019-01-16 18:36 | PRG ---
DATE OF SERVICE: 01/16/2019 INTRODUCTION: Ms. English is a 63-year-old female, who is admitted for prolonged IV antibiotics due to lumbar osteomyelitis/diskitis and severe conditioning. #9. INTERVAL HISTORY: Ms. English reports that she is doing well today. No complaints this morning, slept well overnight. Reports back pain is much better controlled than yesterday. Noted some benefit from lidocaine patch. Not able to use heating pad. Current hospital own heating pad not functioning. The patient is ambulating more frequently without as much assist. Reports fever blister, much improved. PHYSICAL EXAMINATION: VITAL SIGNS: Temperature 97.8; pulse 63, normal sinus rhythm; respiratory rate 20; O2 sat 96% on room air; and blood pressure 124/70. Weight 116.3 kg. GENERAL: The patient is awake, alert, and oriented to person, place, time, and event. Sitting on the edge of the bed, about to have a shower. Non-ill appearing. HEENT: Atraumatic and normocephalic. Extraocular muscles intact. Pupils equal , round, and reactive to light. Normal conjunctivae. Moist mucous membranes noted. CARDIOVASCULAR: Regular rate and rhythm. No murmurs appreciated. LUNGS: Clear to auscultation bilaterally. No wheezes, crackles, or rhonchi. No evidence of respiratory distress. Good air movement. ABDOMEN: Soft, nontender, and nondistended. Bowel sounds present in all 4 quadrants. EXTREMITIES: Full range of motion in all 4 extremities. No clubbing, cyanosis , or edema. PSYCHIATRIC: Appropriate mood and affect. LABORATORY DATA: Vancomycin trough 20.6 drawn on 01/15/2019, at 2155 hours. ASSESSMENT AND PLAN: 1. Lumbar osteomyelitis/diskitis. Etiology unknown at this time. Tolerating empiric treatment well. Will continue with IV vancomycin and Rocephin. Vancomycin trough at goal. Pharmacy to dose. No evidence of systemic infection. 2. Severe deconditioning. The patient continues to improve. 3. Pain control. The patiently currently controlled on p.o. pain medication. Discussed trying to treat all pain with p.o. medications at this time. The patient agrees to use p.o. pain medication. Starting to use adjunctive pain control methods including heat therapy and lidocaine patch. 4. Constipation: Continue daily stool softeners and MiraLax as needed. 5. Hypertension. Blood pressure is now at goal. Continue to monitor. If adjustments needed, we will decrease dose of beta chidi due to intermittent sinus bradycardia. 6. Hypothyroidism. TSH at goal. Continue current dose of levothyroxine. 7. BMI of 40. We will need lifestyle management. Concerned for possible undiagnosed obstructive sleep apnea. Dietary following alongside. 8. Herpes labialis. Treatment completed. We will monitor. Symptoms improved. 9. Shannon intertrigo. Slow improvement with topical nystatin cream. We will continue at least b.i.d., increase to t.i.d. as needed. 10. Prophylaxis. Lovenox for deep venous thrombosis prophylaxis as needed. Antacids for GI issues. SCDs while in bed. The patient encouraged to use IS at bedside frequently throughout the day as well as frequent ambulation. DISPOSITION: Continue current admission status. IV antibiotics until 2018. Labs to be repeated weekly. Encourage ambulation throughout the day. Use adjunctive pain medication. Job ID: [id number] MTD[facility]
[2019-01-16] MEDS: cefTRIAXone\\ROCEPHIN 2 GM VIAL IVPB SCH (21:01)
[2019-01-16] MEDS: Amlodipine 10 MG TAB PO SCH (21:04)
[2019-01-16] MEDS: Lidocaine Patch Removal 1 EACH TOP SCH (22:57)
[2019-01-17] MEDS: Vancomycin HCl 750 MG in Sodium Chloride 0.9% 250 ML 250 ML IVPB SCH ×2 (00:03→11:50)
[2019-01-17] MEDS: Levothyroxine Sodium 100 MCG TAB PO SCH (05:27)
[2019-01-17] MEDS: Ibuprofen 200 MG TAB PO PRN (05:27)
[2019-01-17] MEDS: Baclofen 10 MG TAB PO SCH ×2 (09:32→20:11)
[2019-01-17] MEDS: Chlorthalidone 25 MG TAB PO SCH (09:34)
[2019-01-17] MEDS: Enoxaparin Sodium 40 MG/0.4 ML SYRINGE SC SCH (09:35)
[2019-01-17] MEDS: Docusate 100 MG CAP PO SCH (09:35)
[2019-01-17] MEDS: Lisinopril 20 MG TAB PO SCH (09:36)
[2019-01-17] MEDS: hydrALAZINE 25 MG TAB PO SCH ×3 (09:36→20:11)
[2019-01-17] MEDS: Nystatin Cream 15 GM TUBE TOP SCH ×4 (09:37→20:13)
[2019-01-17 10:35] LABS: Vancomycin, Trough 22.2 ug/mL
[2019-01-17] MEDS: Vancomycin HCl 500 MG in Sodium Chloride 0.9% 100 ML IVPB SCH (10:43)
[2019-01-17] MEDS: Diazepam 5 MG TAB PO PRN (12:21)
--- NOTE | 2019-01-17 12:25 | PRG ---
DATE OF SERVICE: 01/17/2019 INTRODUCTION: Ms. English is a 63-year-old female, who is admitted for prolonged IV antibiotics due to lumbar osteomyelitis/diskitis and severe deconditioning. Skilled day #10. INTERVAL HISTORY: Ms. English reports that she is doing well today. No significant events overnight. No longer requiring IV pain medication. The patient also is keeping up with pain control with [place] 10/325 one capsule p.o. q.6 hours p.r.n. pain. No longer requiring 2 tablets for pain control. The patient report she does not feel like lidocaine was very effective and therefore, requested it to be removed. Still awaiting functional heating pad for heat therapy. Reports yeast infection slowly improving; however, has been going to the bathroom more frequently and feels that the topical cream is being wiped off and not as effective. PHYSICAL EXAMINATION: VITAL SIGNS: Temperature 98.1, heart rate 60 and normal sinus rhythm, blood pressure 137/75, respiratory rate 17, and 95% on room air. GENERAL: The patient is awake, alert, and oriented to person, place, time, and event. She is lying comfortably in bed. Non-ill appearing. HEENT: Atraumatic and normocephalic. Extraocular muscles intact. Pupils are equal, round, and reactive to light. Normal conjunctivae. Moist mucous membranes. CARDIOVASCULAR: Regular rate and rhythm. No murmurs. LUNGS: Clear to auscultation bilaterally. No wheezes, crackles, or rhonchi. No evidence of respiratory distress. ABDOMEN: Soft, nontender, and nondistended. Bowel sounds present. EXTREMITIES: Full range of motion in all 4 extremities. No clubbing, cyanosis , or edema. SKIN: Macular rash still present on superior gluteal cleft. Shallow superficial small ulceration for more blister have erupted. No drainage. No evidence of suprainfection. Rash has improved from bright angry red to now salmon pink in color. Borders still sharp. Involved area is decreasing. PSYCHIATRIC: Appropriate mood and affect. Good outlook for today. LABORATORY DATA: No new. ASSESSMENT AND PLAN: 1. Lumbar osteomyelitis/diskitis: Tolerating empiric therapy well. Continue vancomycin and Rocephin. Pharmacy to continue to dose vancomycin based on trough levels. Recent trough just drawn and still pending. 2. Severe deconditioning: The patient has shown much improvement over the last 3 days. The patient able to ambulate much more; however, still requiring assistance. 3. Pain control: Much improved pain control. We will start to taper narcotics in the near future apparently not requiring 2 tablets of [place], only using 1 tablet at this point, not requiring any IV pain medications. Awaiting functional heating pad to help with adjunctive pain control. We will discontinue lidocaine patch. 4. Constipation: Improved did have 2 bowel movements yesterday. We will continue stool softeners, change to once a day. 5. Hypertension: Blood pressure controlled. No evidence of hypertension. We will continue current treatment. 6. Hypothyroidism: Continue current dose of levothyroxine. 7. BMI of 40: Continue lifestyle management. Outpatient disaster recovery analyst following. Would be concerned for possible undiagnosed obstructive sleep apnea. Will likely need followup as outpatient. 8. Herpes labialis: Resolved. 9. Shannon intertrigo: Improving due to frequency of voiding episodes. We will increase frequency to reapply topical nystatin as needed. 10. Prophylaxis: Lovenox for deep venous thrombosis prophylaxis. Ambulation encouraged. Sequential compression devices while in bed. P.R.N. GI medications in placed. DISPOSITION: Continue current admission status. IV antibiotics until 2018. Continue physical therapy daily. Encourage ambulation frequently throughout the day. Awaiting functional heating pad. Job ID: [id number] [facility]
[2019-01-17] MEDS: Amlodipine 10 MG TAB PO SCH (20:11)
[2019-01-17] MEDS: cefTRIAXone\\ROCEPHIN 2 GM VIAL IVPB SCH (20:11)
[2019-01-17] MEDS: HYDROcodone/Acetaminophen 10/325 mg Tablet PO PRN (20:12)
[2019-01-17] MEDS: Vancomycin HCl 1 GM in Sodium Chloride 0.9% 250 ML 250 ML IVPB SCH (22:02)
[2019-01-18] MEDS: Levothyroxine Sodium 100 MCG TAB PO SCH (05:33)
[2019-01-18] MEDS: Baclofen 10 MG TAB PO SCH ×2 (08:43→20:43)
[2019-01-18] MEDS: Docusate 100 MG CAP PO SCH (08:43)
[2019-01-18] MEDS: Lisinopril 20 MG TAB PO SCH (08:44)
[2019-01-18] MEDS: Enoxaparin Sodium 40 MG/0.4 ML SYRINGE SC SCH (08:44)
[2019-01-18] MEDS: Chlorthalidone 25 MG TAB PO SCH (08:44)
[2019-01-18] MEDS: hydrALAZINE 25 MG TAB PO SCH ×3 (08:44→20:42)
[2019-01-18] MEDS: Nystatin Cream 15 GM TUBE TOP SCH ×4 (08:45→20:44)
[2019-01-18] MEDS: HYDROcodone/Acetaminophen 10/325 mg Tablet PO PRN ×2 (08:52→20:43)
[2019-01-18] MEDS: Vancomycin HCl 1 GM in Sodium Chloride 0.9% 250 ML 250 ML IVPB SCH ×2 (10:35→22:14)
[2019-01-18] MEDS: Diazepam 5 MG TAB PO PRN (17:46)
[2019-01-18] MEDS: Amlodipine 10 MG TAB PO SCH (20:43)
[2019-01-18] MEDS: cefTRIAXone\\ROCEPHIN 2 GM VIAL IVPB SCH (20:44)
[2019-01-19] MEDS: HYDROcodone/Acetaminophen 10/325 mg Tablet PO PRN ×3 (01:18→20:29)
[2019-01-19] MEDS: Levothyroxine Sodium 100 MCG TAB PO SCH (05:50)
[2019-01-19] MEDS: Baclofen 10 MG TAB PO SCH ×2 (08:17→20:28)
[2019-01-19] MEDS: Lisinopril 20 MG TAB PO SCH (08:18)
[2019-01-19] MEDS: hydrALAZINE 25 MG TAB PO SCH ×3 (08:18→20:30)
[2019-01-19] MEDS: Diazepam 5 MG TAB PO PRN (08:18)
[2019-01-19] MEDS: Chlorthalidone 25 MG TAB PO SCH (08:18)
[2019-01-19] MEDS: Docusate 100 MG CAP PO SCH (08:19)
[2019-01-19] MEDS: Enoxaparin Sodium 40 MG/0.4 ML SYRINGE SC SCH (08:19)
[2019-01-19] MEDS: Nystatin Cream 15 GM TUBE TOP SCH ×4 (08:25→20:28)
[2019-01-19 10:30] LABS: Vancomycin, Trough 19.6 ug/mL
[2019-01-19] MEDS: Vancomycin HCl 1 GM in Sodium Chloride 0.9% 250 ML 250 ML IVPB SCH ×2 (10:56→22:01)
[2019-01-19] MEDS: Ketorolac Tromethamine 30 MG/ML VIAL IVP PRN (14:10)
--- NOTE | 2019-01-19 14:22 | PRG ---
DATE OF SERVICE: 01/19/2019 SUBJECTIVE: The patient is a 63-year-old female, who is at [facility] for IV antibiotics for osteomyelitis in the lumbar spine. The patient overnight started having more severe back pain. She stated that she has been doing very well in the past several days and then yesterday, she suddenly started having severe spasms and increased pain that made it difficult to move. She states that this morning she has not tried to sit up yet in anticipation of her back hurting. She denies any new fever or chills. OBJECTIVE: VITAL SIGNS: Temperature 96.0, pulse 55, respiration rate 18, O2 saturation 98% on room air, and blood pressure 142/81. GENERAL: The patient is awake, alert, and oriented, in no acute distress. CARDIOVASCULAR: Regular rate and rhythm without murmurs, gallops, or rubs. LUNGS: Clear to auscultation bilaterally without wheezing or rhonchi. ABDOMEN: Soft, nontender, and nondistended. Bowel sounds are present. EXTREMITIES: There is no clubbing, cyanosis, or edema. SKIN: No rashes or jaundice is noted. MUSCULOSKELETAL: The patient has tenderness to palpation in the lower back region. LABORATORY DATA: Vanc trough 19.6. ASSESSMENT AND PLAN: 1. Osteomyelitis/diskitis of the lumbar spine: We will continue Rocephin and vancomycin. Vanc trough is within range. We will continue weekly labs. 2. Back pain: The patient's Toradol has fallen off since she arrived here. She will restart the Toradol today as she has had good relief from her pain in the past with it. Continue baclofen for the muscle spasms and Bruno for more severe pain. 3. Severe deconditioning: It was reported that the patient has been doing much better and has been able to get up and ambulate a little bit better. However, she did have a setback yesterday evening and throughout the night with increased pain, which is preventing her from getting up out of bed without significant assistance. We will continue therapy. 4. Constipation: Stable. 5. Hypertension: BP is stable. We will continue to monitor. 6. Hypothyroidism: Continue levothyroxine as recent TSH was within normal range. 7. Deep vein thrombosis prophylaxis: We will continue Lovenox for deep vein thrombosis prophylaxis and SCDs while in bed. 8. The patient will need to continue IV antibiotics until 02/16/2019. Continue therapy and increase ambulation. Job ID: [id number]
[2019-01-19] MEDS: Amlodipine 10 MG TAB PO SCH (20:29)
[2019-01-19] MEDS: cefTRIAXone\\ROCEPHIN 2 GM VIAL IVPB SCH (20:30)
[2019-01-20] MEDS: Levothyroxine Sodium 100 MCG TAB PO SCH (05:20)
[2019-01-20] MEDS: HYDROcodone/Acetaminophen 10/325 mg Tablet PO PRN ×3 (06:10→19:46)
[2019-01-20] MEDS: Ketorolac Tromethamine 30 MG/ML VIAL IVP PRN (08:54)
[2019-01-20] MEDS: Enoxaparin Sodium 40 MG/0.4 ML SYRINGE SC SCH (08:58)
[2019-01-20] MEDS: Nystatin Cream 15 GM TUBE TOP SCH ×4 (08:58→19:47)
[2019-01-20] MEDS: Chlorthalidone 25 MG TAB PO SCH (09:01)
[2019-01-20] MEDS: Docusate 100 MG CAP PO SCH (09:02)
[2019-01-20] MEDS: Baclofen 10 MG TAB PO SCH ×2 (09:02→19:46)
[2019-01-20] MEDS: Lisinopril 20 MG TAB PO SCH (09:02)
[2019-01-20] MEDS: hydrALAZINE 25 MG TAB PO SCH ×3 (09:03→19:46)
[2019-01-20] MEDS: Vancomycin HCl 1 GM in Sodium Chloride 0.9% 250 ML 250 ML IVPB SCH ×2 (11:38→21:55)
[2019-01-20] MEDS: Diazepam 5 MG TAB PO PRN (15:35)
[2019-01-20] MEDS: cefTRIAXone\\ROCEPHIN 2 GM VIAL IVPB SCH (19:45)
[2019-01-20] MEDS: Amlodipine 10 MG TAB PO SCH (19:46)
--- NOTE | 2019-01-20 21:24 | PRG ---
DATE OF SERVICE: 01/20/2019 SUBJECTIVE: The patient is a 63-year-old female, with osteomyelitis and diskitis of the spine, who is at [facility] for long-term IV antibiotics. The patient states that she is feeling much better this morning. Her back pain is controlled and she is not having back spasms. OBJECTIVE: VITAL SIGNS: Temperature 98.1, pulse 62, respiratory rate 18, O2 saturation 97% on room air, and blood pressure 135/87. GENERAL: The patient is awake, alert, oriented, and in no acute distress. CARDIOVASCULAR: Regular rate and rhythm without murmurs, gallops, or rubs. LUNGS: Clear to auscultation bilaterally without wheezing or rhonchi. ABDOMEN: Soft, nontender, and nondistended. Bowel sounds present. EXTREMITIES: There is no clubbing, cyanosis, or edema. PSYCHIATRIC: The patient displays appropriate mood and affect. ASSESSMENT AND PLAN: 1. Osteomyelitis/diskitis of the spine: We will continue IV vancomycin and Rocephin until February 16. The patient has vancomycin trough being drawn by Pharmacy. 2. Severe deconditioning: The patient is continuing to work with Therapy and was able to get up this morning and looks forward to taking a shower. 3. Back pain: This is improved since trying the Toradol yesterday. We will continue current medications. 4. Hypertension: Blood pressure is controlled. 5. Hypothyroidism: Continue supplementation. 6. Deep venous thrombosis prophylaxis with Lovenox. Job ID: [id number]
[2019-01-21] MEDS: Levothyroxine Sodium 100 MCG TAB PO SCH (06:30)
[2019-01-21] MEDS: HYDROcodone/Acetaminophen 10/325 mg Tablet PO PRN ×3 (06:30→23:35)
[2019-01-21] MEDS: Enoxaparin Sodium 40 MG/0.4 ML SYRINGE SC SCH (08:30)
[2019-01-21] MEDS: Chlorthalidone 25 MG TAB PO SCH (08:31)
[2019-01-21] MEDS: Baclofen 10 MG TAB PO SCH ×2 (08:31→20:10)
[2019-01-21] MEDS: Lisinopril 20 MG TAB PO SCH (08:31)
[2019-01-21] MEDS: Nystatin Cream 15 GM TUBE TOP SCH ×4 (08:32→20:17)
[2019-01-21] MEDS: Docusate 100 MG CAP PO SCH (08:32)
[2019-01-21] MEDS: hydrALAZINE 25 MG TAB PO SCH ×3 (08:32→20:10)
[2019-01-21] MEDS: Diazepam 5 MG TAB PO PRN (09:38)
[2019-01-21] MEDS: Vancomycin HCl 1 GM in Sodium Chloride 0.9% 250 ML 250 ML IVPB SCH ×2 (11:36→23:19)
[2019-01-21] MEDS: Ketorolac Tromethamine 30 MG/ML VIAL IVP PRN (13:23)
[2019-01-21] MEDS ORDERED: Fluconazole 100 MG TAB PO SCH (16:00)
--- NOTE | 2019-01-21 16:23 | PRG ---
DATE OF SERVICE: 01/21/2019 SUBJECTIVE: The patient is a 63-year-old female undergoing IV antibiotic therapy for osteomyelitis. The patient states that she was able to get up and walk around the nurses' station twice with physical therapy without stopping. She states that walking is okay and lying down in bed is okay, but her back starts to really hurt when she is sitting up. Her other main concern this afternoon is vaginal irritation, itching, and discharge. She states this feels like previous yeast infections that she has experienced. OBJECTIVE: VITAL SIGNS: Temperature 97.4, pulse 62, respiratory rate 16, O2 saturation 97% on room air, and blood pressure 136/77. GENERAL: The patient is awake, alert, and oriented, in no acute distress. CARDIOVASCULAR: Regular rate and rhythm without murmurs, gallops, or rubs. LUNGS: Clear to auscultation bilaterally without wheezing or rhonchi. ABDOMEN: Soft, nontender, and nondistended. Bowel sounds are present. EXTREMITIES: There is no clubbing, cyanosis, or edema. ASSESSMENT AND PLAN: 1. Osteomyelitis of lumbar spine: We will continue IV vancomycin and Rocephin. The patient is due for repeat labs tomorrow, and these will be ordered. We are monitoring periodic vanc troughs. 2. Vaginal yeast infection: We will treat with fluconazole. 3. Back pain: The patient's pain is fairly well controlled with her current regimen. We will continue this. 4. Severe deconditioning: We will continue therapy services. 5. Hypothyroidism: The patient will continue supplementation. 6. DVT prophylaxis with Lovenox. Job ID: [id number]
[2019-01-21] MEDS: cefTRIAXone\\ROCEPHIN 2 GM VIAL IVPB SCH (20:08)
[2019-01-21] MEDS: Amlodipine 10 MG TAB PO SCH (20:09)
[2019-01-21] MEDS: Ibuprofen 200 MG TAB PO PRN (20:11)
[2019-01-22] MEDS: Levothyroxine Sodium 100 MCG TAB PO SCH (05:10)
[2019-01-22] MEDS: Ibuprofen 200 MG TAB PO PRN (05:10)
[2019-01-22] MEDS: Baclofen 10 MG TAB PO SCH ×2 (08:20→20:42)
[2019-01-22] MEDS: Docusate 100 MG CAP PO SCH (08:21)
[2019-01-22] MEDS: hydrALAZINE 25 MG TAB PO SCH ×3 (08:21→20:42)
[2019-01-22] MEDS: Chlorthalidone 25 MG TAB PO SCH (08:21)
[2019-01-22] MEDS: Nystatin Cream 15 GM TUBE TOP SCH ×4 (08:22→20:42)
[2019-01-22] MEDS: Lisinopril 20 MG TAB PO SCH (08:22)
[2019-01-22] MEDS: Enoxaparin Sodium 40 MG/0.4 ML SYRINGE SC SCH (08:22)
[2019-01-22] MEDS: HYDROcodone/Acetaminophen 10/325 mg Tablet PO PRN ×2 (08:25→23:23)
[2019-01-22] MEDS ORDERED: Fluconazole 100 MG TAB PO SCH (09:00)
[2019-01-22 10:35] LABS: #Basophils 0.1 thou/uL (0.0-0.2); #Eosinphils 0.3 thou/uL (0.0-0.7); #Lymphocytes 2.2 thou/uL (1.20-3.40); #Monocytes 0.5 thou/uL (0.11-0.59); #Neutrophils 4.1 thou/uL (1.40-6.50); %Basophils 1.3 % (0.0-1.0); %Eosinophils 3.7 % (0.0-10.0); %Lymphocytes 30.8 % (21.0-51.0); %Monocytes 7.3 % (0.0-10.0); %Neutrophils 56.9 % (42.0-75.0); Hemoglobin 13.2 g/dL (12.0-16.0); Mean Corpuscular HGB CONC 31.8 g/dL (32.0-36.0); Mean Corpuscular Hemoglobin 28.4 pg (27.0-31.0); Mean Corpuscular Volume 89.4 fL (78.0-98.0); Mean Platelet Volume 7.6 fL (7.4-10.4); Platelet Count 343 thou/uL (130-400); Red Blood Cell (RBC) Count 4.65 mill/uL (4.20-5.40); White Blood Cell (WBC) Count 7.2 thou/uL (4.8-10.8)
[2019-01-22 10:43] LABS: Vancomycin, Trough 21.1 ug/mL
[2019-01-22 10:46] LABS: Anion Gap 15 mmol/L (10-20); BUN (Urea Nitrogen) 21 mg/dL (9.8-20.1); CRP (Inflammatory) 1.77 mg/dL (= or < 0.5); Calc. Creatinine Clearance 92 mL/min (70-130); Calcium 9.5 mg/dL (7.8-10.44); Carbon Dioxide 25 mmol/L (23-31); Chloride 104 mmol/L (98-107); Estimated GFR-MDRD 48; Glucose 97 mg/dL (80-115); Potassium 4.2 mmol/L (3.5-5.1); Sodium 140 mmol/L (136-145)
[2019-01-22] MEDS: Diazepam 5 MG TAB PO PRN (10:56)
[2019-01-22] MEDS: Vancomycin HCl 1 GM in Sodium Chloride 0.9% 250 ML 250 ML IVPB SCH ×2 (11:14→23:15)
--- NOTE | 2019-01-22 18:23 | PRG ---
DATE OF SERVICE: 01/22/2019 SUBJECTIVE: The patient is a 63-year-old female, who is undergoing IV antibiotics until February 16 for osteomyelitis and diskitis of L2-3 vertebrae. The patient was able to get up and ambulate with assistance with physical therapy yesterday, but is still having severe back spasms if she tries to sit up in a chair. OBJECTIVE: VITAL SIGNS: Temperature 97.5, pulse 55, respiration rate 20, O2 saturation 98% on room air, and blood pressure 131/72. GENERAL: The patient is awake, alert, and oriented, in no acute distress. CARDIOVASCULAR: Regular rate and rhythm without murmurs, gallops, or rubs. LUNGS: Clear to auscultation bilaterally without wheezing or rhonchi. ABDOMEN: Soft, nontender, and nondistended. Bowel sounds present. EXTREMITIES: There is no clubbing, cyanosis, or edema. MUSCULOSKELETAL: The patient has some mild tenderness to palpation in the lower lumbar spine. PSYCHIATRIC: The patient displays an appropriate mood and affect. LABORATORY DATA: CBC; WBC 7.2, hemoglobin 13.2, hematocrit 41.6, and platelet count 343. BMP; sodium 140, potassium 4.2, chloride 104, bicarb 25, BUN 21, creatinine 1.14, glucose 97, and calcium 9.5. CRP 1.77. ASSESSMENT AND PLAN: 1. Osteomyelitis and diskitis at L2-3: The patient's CRP is improving showing that the treatment is effective. The patient continues to require IV vancomycin and Rocephin, with her vancomycin being dosed multiple times a day. She also continues to need frequent lab draws to monitor her vanc levels. The patient needs continued skilled care for this reason. 2. Deconditioning: The patient continues to work with therapy to try to improve ambulation and endurance. 3. Hypertension: Blood pressure stable. 4. Back pain: We are continuing current pain medications and she has had improvement with IV Toradol. 5. Hypothyroidism: Continue supplementation. 6. Deep venous thrombosis prophylaxis with Lovenox. Job ID: [id number]
[2019-01-22] MEDS: cefTRIAXone\\ROCEPHIN 2 GM VIAL IVPB SCH (20:41)
[2019-01-22] MEDS: Amlodipine 10 MG TAB PO SCH (20:42)
[2019-01-23] MEDS: Levothyroxine Sodium 100 MCG TAB PO SCH (05:23)
[2019-01-23] MEDS: Ibuprofen 200 MG TAB PO PRN (05:24)
[2019-01-23] MEDS: Enoxaparin Sodium 40 MG/0.4 ML SYRINGE SC SCH (08:50)
[2019-01-23] MEDS: HYDROcodone/Acetaminophen 10/325 mg Tablet PO PRN (08:52)
[2019-01-23] MEDS: Chlorthalidone 25 MG TAB PO SCH (09:00)
[2019-01-23] MEDS: Baclofen 10 MG TAB PO SCH ×2 (09:00→21:00)
[2019-01-23] MEDS: Lisinopril 20 MG TAB PO SCH (09:03)
[2019-01-23] MEDS: Docusate 100 MG CAP PO SCH (09:03)
[2019-01-23] MEDS: hydrALAZINE 25 MG TAB PO SCH ×3 (09:03→21:01)
[2019-01-23] MEDS: Nystatin Cream 15 GM TUBE TOP SCH ×4 (10:06→21:02)
[2019-01-23] MEDS: Vancomycin HCl 1 GM in Sodium Chloride 0.9% 250 ML 250 ML IVPB SCH ×2 (10:28→23:10)
[2019-01-23] MEDS: Ketorolac Tromethamine 30 MG/ML VIAL IVP PRN (14:46)
[2019-01-23] MEDS: cefTRIAXone\\ROCEPHIN 2 GM VIAL IVPB SCH (20:58)
[2019-01-23] MEDS: Amlodipine 10 MG TAB PO SCH (21:01)
[2019-01-23 22:18] LABS: Vancomycin, Trough 18.5 ug/mL
--- NOTE | 2019-01-24 00:25 | PRG ---
DATE OF SERVICE: 01/23/2019 SUBJECTIVE: The patient is a 63-year-old female undergoing IV antibiotics for osteomyelitis of the L2-3 spine. Late yesterday afternoon, she forgot her insurance company has denied further days effective 01/22 but I was able to get extended coverage until January 29. The patient states that yesterday afternoon she had more severe back pain and felt like she did a little bit too much for therapy. The entire time, she has been able to get up and sit up in a chair without back pain and spasming. This morning, she is feeling a little bit better. OBJECTIVE: VITAL SIGNS: Temperature 98, pulse 60, respiration rate 16, O2 saturation 97% on room air, blood pressure 126/80. GENERAL: The patient is awake, alert, and oriented, in no acute distress. CARDIOVASCULAR: Regular rate and rhythm without murmurs, gallops, or rubs. LUNGS: Clear to auscultation bilaterally without wheezing or rhonchi. ABDOMEN: Soft, nontender, nondistended with bowel sounds present. EXTREMITIES: There is no clubbing, cyanosis, or edema. PSYCHIATRIC: The patient displays appropriate mood and affect, though she does become anxious when discussing possible discharge next week. LABORATORY DATA: Vancomycin trough 18.5. ASSESSMENT AND PLAN: 1. Osteomyelitis/diskitis of the lumbar spine: The patient will continue with vancomycin and Rocephin. Her vancomycin trough is currently therapeutic. We will continue to monitor this. She will continue to have weekly labs and antibiotics are scheduled to stop on February 16. 2. Intractable back pain: The patient will continue current medications for back pain and continue the baclofen for muscle spasms. 3. Deconditioning: The patient still needs therapy to improve her endurance and strength. 4. Hypertension: Blood pressure is well controlled. 5. Hypothyroidism: Continue supplementation. 6. Deep vein thrombosis prophylaxis: Continue Lovenox. Job ID: [id number] [facility]
[2019-01-24] MEDS: Levothyroxine Sodium 100 MCG TAB PO SCH (05:26)
[2019-01-24] MEDS: Ibuprofen 200 MG TAB PO PRN ×2 (05:26→23:53)
[2019-01-24] MEDS: Nystatin Cream 15 GM TUBE TOP SCH ×4 (09:44→21:18)
[2019-01-24] MEDS: Enoxaparin Sodium 40 MG/0.4 ML SYRINGE SC SCH (09:44)
[2019-01-24] MEDS: Docusate 100 MG CAP PO SCH (09:45)
[2019-01-24] MEDS: Baclofen 10 MG TAB PO SCH ×2 (09:45→21:16)
[2019-01-24] MEDS: hydrALAZINE 25 MG TAB PO SCH ×3 (09:46→21:17)
[2019-01-24] MEDS: Lisinopril 20 MG TAB PO SCH (09:46)
[2019-01-24] MEDS: Chlorthalidone 25 MG TAB PO SCH (09:47)
[2019-01-24] MEDS: Vancomycin HCl 1 GM in Sodium Chloride 0.9% 250 ML 250 ML IVPB SCH ×2 (10:10→23:12)
[2019-01-24] MEDS ORDERED: Sodium Chloride 0.9% 10 ML ONE (11:17)
[2019-01-24] MEDS: HYDROcodone/Acetaminophen 10/325 mg Tablet PO PRN (14:24)
[2019-01-24] MEDS: Amlodipine 10 MG TAB PO SCH (21:17)
[2019-01-24] MEDS: cefTRIAXone\\ROCEPHIN 2 GM VIAL IVPB SCH (21:17)
[2019-01-25] MEDS: HYDROcodone/Acetaminophen 10/325 mg Tablet PO PRN ×2 (03:09→09:18)
[2019-01-25] MEDS: Levothyroxine Sodium 100 MCG TAB PO SCH (05:27)
[2019-01-25] MEDS: Enoxaparin Sodium 40 MG/0.4 ML SYRINGE SC SCH (09:12)
[2019-01-25] MEDS: Nystatin Cream 15 GM TUBE TOP SCH ×4 (09:13→21:07)
[2019-01-25] MEDS: Docusate 100 MG CAP PO SCH (09:13)
[2019-01-25] MEDS: Lisinopril 20 MG TAB PO SCH (09:14)
[2019-01-25] MEDS: Baclofen 10 MG TAB PO SCH ×2 (09:15→21:06)
[2019-01-25] MEDS: Chlorthalidone 25 MG TAB PO SCH (09:16)
[2019-01-25] MEDS: hydrALAZINE 25 MG TAB PO SCH ×3 (09:18→21:07)
[2019-01-25 10:19] LABS: Vancomycin, Trough 19.4 ug/mL
[2019-01-25] MEDS: Vancomycin HCl 1 GM in Sodium Chloride 0.9% 250 ML 250 ML IVPB SCH ×2 (10:45→23:24)
[2019-01-25] MEDS: Ibuprofen 200 MG TAB PO PRN (10:48)
[2019-01-25] MEDS: Diazepam 5 MG TAB PO PRN (12:16)
[2019-01-25] MEDS: cefTRIAXone\\ROCEPHIN 2 GM VIAL IVPB SCH (21:00)
[2019-01-25] MEDS: Amlodipine 10 MG TAB PO SCH (21:06)
--- NOTE | 2019-01-25 22:22 | PRG ---
DATE OF SERVICE: 01/25/2019 SUBJECTIVE: The patient is a 63-year-old female who is undergoing IV antibiotic therapy for osteomyelitis of the lumbar spine. The patient is not very active yesterday due to her back pain. The patient's nurse is at the bedside currently giving her some [place]. We have tried to help her get up and moving a little bit more today. The patient has no other complaints at this time. OBJECTIVE: VITAL SIGNS: Temperature 97.5, pulse 60, respiration rate 17, O2 saturation 97% on room air, blood pressure 123/86. GENERAL: The patient is awake, alert, oriented, in no acute distress. CARDIOVASCULAR: Regular rate and rhythm without murmurs, gallops, or rubs. LUNGS: Clear to auscultation bilaterally without wheezing or rhonchi. ABDOMEN: Soft, nontender, nondistended. Bowel sounds present. EXTREMITIES: No clubbing, cyanosis, or edema. PSYCHIATRIC: The patient displays appropriate mood and affect. LABORATORY DATA: Vancomycin trough 19.4. ASSESSMENT AND PLAN: 1. Osteomyelitis/diskitis of the lumbar spine: The patient will continue vancomycin and Rocephin until February 16. Continue to follow vancomycin trough. Repeat labs are due on . We will work to try to set up outpatient antibiotics. 2. Intractable back pain: We will continue on her [place] and baclofen as well as NSAIDs. This week we will work toward a good oral pain medicine regimen that she will be able to take at home. 3. Deconditioning: The patient still needs additional therapy to increase ambulation. 4. Hypertension: Well controlled. 5. Hypothyroidism: Continue supplementation. 6. Deep venous thrombosis prophylaxis: Continue Lovenox. Job ID: [id number]
[2019-01-26] MEDS: Diazepam 5 MG TAB PO PRN ×3 (02:35→18:26)
[2019-01-26] MEDS: Levothyroxine Sodium 100 MCG TAB PO SCH (05:33)
[2019-01-26] MEDS: Chlorthalidone 25 MG TAB PO SCH (09:14)
[2019-01-26] MEDS: Docusate 100 MG CAP PO SCH (09:14)
[2019-01-26] MEDS: Baclofen 10 MG TAB PO SCH ×2 (09:18→21:00)
[2019-01-26] MEDS: hydrALAZINE 25 MG TAB PO SCH ×3 (09:19→21:00)
[2019-01-26] MEDS: Lisinopril 20 MG TAB PO SCH (09:24)
[2019-01-26] MEDS: Enoxaparin Sodium 40 MG/0.4 ML SYRINGE SC SCH (09:28)
[2019-01-26] MEDS: Nystatin Cream 15 GM TUBE TOP SCH ×4 (10:23→21:01)
[2019-01-26] MEDS: Vancomycin HCl 1 GM in Sodium Chloride 0.9% 250 ML 250 ML IVPB SCH ×2 (10:54→22:07)
[2019-01-26] MEDS: HYDROcodone/Acetaminophen 10/325 mg Tablet PO PRN ×2 (12:58→21:02)
--- NOTE | 2019-01-26 17:32 | PRG ---
DATE OF SERVICE: 01/26/2019 SUBJECTIVE: The patient is a 63-year-old female who is at [facility] for rehabilitation and IV antibiotics for osteomyelitis and diskitis of the spine. The patient still is not able to sit up in a chair without significant pain. She is still fairly weak and needs assistance with ambulation. OBJECTIVE: VITALS SIGNS: Temp 97.8, pulse 72, respiration rate 16, O2 saturation 96% on room air, blood pressure 150/93. GENERAL: In general, the patient is awake, alert, oriented, in no acute distress. CARDIOVASCULAR: Regular rate and rhythm without murmurs, gallops, or rubs. LUNGS: Clear to auscultation bilaterally without wheezing or rhonchi. ABDOMEN: Soft, nontender, nondistended with bowel sounds present. EXTREMITIES: There is no clubbing, cyanosis, or edema. NEUROLOGIC: Cranial nerves 2 through 12 are grossly intact. Deep tendon reflexes are 2/4. The patient has normal sensation throughout. PSYCHIATRIC: The patient is somewhat anxious this morning. As we discussed her insurance may start coverage at the end of the week. ASSESSMENT AND PLAN: 1. Osteomyelitis and diskitis of the lumbar spine at L2-3: The patient continues to require vancomycin dose twice a day and Rocephin dose once a day until February 16. We will continue weekly labs and she is due on January 29 for her repeated CBC, CMP, and CRP. I will ask case management when I come tomorrow to see if we can get help arranging for outpatient IV antibiotics. 2. Severe deconditioning: The patient continues to require prison care. She is very anxious and I am concerned as well that she is not yet ready to discharge from the hospital though her insurance has only approved her through January 29 so far. The patient lives at home alone and has no one to come and help her and she is having difficulty even sitting up in a chair. We will continue therapy services. 3. Intractable back pain: We will continue current medications for back pain and back spasms. 4. Hypertension: Blood pressure is a little bit elevated this morning, but she is in more pain and she is anxious. We will continue to monitor. 5. Hypothyroidism: Continue supplementation. 6. Deep venous thrombosis prophylaxis with Lovenox. 7. I have spoken with the nursing staff and asked them to help coordinate with the appeal to her insurance as well as trying to set up outpatient antibiotics in the event that she does get denied later in the week. Job ID: [id number]
[2019-01-26] MEDS: Ibuprofen 200 MG TAB PO PRN (18:27)
[2019-01-26] MEDS: cefTRIAXone\\ROCEPHIN 2 GM VIAL IVPB SCH (21:00)
[2019-01-26] MEDS: Amlodipine 10 MG TAB PO SCH (21:00)
[2019-01-27] MEDS: Ibuprofen 200 MG TAB PO PRN ×2 (05:36→21:04)
[2019-01-27] MEDS: Levothyroxine Sodium 100 MCG TAB PO SCH (05:36)
[2019-01-27] MEDS: Enoxaparin Sodium 40 MG/0.4 ML SYRINGE SC SCH (07:56)
[2019-01-27] MEDS: Baclofen 10 MG TAB PO SCH ×2 (07:57→21:02)
[2019-01-27] MEDS: Docusate 100 MG CAP PO SCH (07:57)
[2019-01-27] MEDS: Lisinopril 20 MG TAB PO SCH (07:57)
[2019-01-27] MEDS: Chlorthalidone 25 MG TAB PO SCH (07:58)
[2019-01-27] MEDS: hydrALAZINE 25 MG TAB PO SCH ×3 (07:58→21:03)
[2019-01-27] MEDS: Nystatin Cream 15 GM TUBE TOP SCH ×4 (07:59→21:18)
[2019-01-27] MEDS: HYDROcodone/Acetaminophen 10/325 mg Tablet PO PRN (08:02)
[2019-01-27] MEDS: Vancomycin HCl 1 GM in Sodium Chloride 0.9% 250 ML 250 ML IVPB SCH ×2 (11:33→23:09)
--- NOTE | 2019-01-27 17:45 | PRG ---
DATE OF SERVICE: 01/27/2019 SUBJECTIVE: The patient is a 63-year-old female, who is undergoing IV antibiotics for osteomyelitis of the lumbar spine. The patient has had elevated blood pressure in the past 24 hours and has had increasing anxiety and agitation while contemplating her discharge planning. She is frustrated that her insurance is not offering coverage for her until her antibiotics and that we are having to try to arrange for her to either go to another skilled nursing or to go home with Home Health and have to manage her IV antibiotics on her own as an outpatient. She understands that we as a facility do not have much control over this as it is really her insurance that is driving everything, but it is still an anxiety invoking time. OBJECTIVE: VITAL SIGNS: Temperature 97.0, pulse 58, respiration rate 20, O2 saturation 97% on room air, blood pressure 141/92. GENERAL: The patient is awake, alert, oriented, and in no acute distress. CARDIOVASCULAR: Regular rate and rhythm without murmurs, gallops, or rubs. LUNGS: Clear to auscultation bilaterally without wheezing or rhonchi. ABDOMEN: Soft, nontender, nondistended. Bowel sounds present. EXTREMITIES: There is no clubbing, cyanosis, or edema. PSYCHIATRIC: The patient is somewhat anxious. LABORATORY DATA: Vancomycin trough 19.0. ASSESSMENT AND PLAN: 1. Osteomyelitis and diskitis of the lumbar spine at L2-L3: The patient continues to require vancomycin and Rocephin until 02/16. Weekly labs are done on . The patient's vanc trough is currently therapeutic. We are continuing to monitor this. 2. Generalized deconditioning: The patient was able to tolerate sitting on the recumbent bike for about 10 minutes. She still struggles to sit up in a chair as it causes excruciating back pain and spasm. She does still need continued therapy. 3. Back pain: We will continue current pain medication regimens. She does also have Zofran on board because her [place] sometimes makes her nauseated. 4. Hypertension: I believe her blood pressures been well controlled while she has been here, but has increased in the past 24 hours if her anxiety has increased. We will continue to monitor. 5. Hypothyroidism: Continue supplementation. 6. Deep venous thrombosis prophylaxis: Continue Lovenox. Job ID: [id number]
[2019-01-27] MEDS: Amlodipine 10 MG TAB PO SCH (21:02)
[2019-01-27] MEDS: cefTRIAXone\\ROCEPHIN 2 GM VIAL IVPB SCH (21:03)
[2019-01-27] MEDS: Diazepam 5 MG TAB PO PRN (21:04)
[2019-01-28] MEDS: Levothyroxine Sodium 100 MCG TAB PO SCH (05:19)
[2019-01-28] MEDS: Ibuprofen 200 MG TAB PO PRN (05:20)
[2019-01-28] MEDS: Chlorthalidone 25 MG TAB PO SCH (08:46)
[2019-01-28] MEDS: Baclofen 10 MG TAB PO SCH ×2 (08:46→19:43)
[2019-01-28] MEDS: Enoxaparin Sodium 40 MG/0.4 ML SYRINGE SC SCH (08:47)
[2019-01-28] MEDS: hydrALAZINE 25 MG TAB PO SCH ×3 (08:47→19:45)
[2019-01-28] MEDS: Docusate 100 MG CAP PO SCH (08:47)
[2019-01-28] MEDS: Lisinopril 20 MG TAB PO SCH (08:48)
[2019-01-28] MEDS: HYDROcodone/Acetaminophen 10/325 mg Tablet PO PRN ×3 (08:49→23:30)
[2019-01-28] MEDS: Nystatin Cream 15 GM TUBE TOP SCH ×4 (08:49→19:45)
[2019-01-28] MEDS: Vancomycin HCl 1 GM in Sodium Chloride 0.9% 250 ML 250 ML IVPB SCH ×2 (10:29→22:46)
[2019-01-28] MEDS: Diazepam 5 MG TAB PO PRN ×2 (10:38→20:00)
--- NOTE | 2019-01-28 17:55 | PRG ---
DATE OF SERVICE: 01/28/2019 SUBJECTIVE: The patient is a 63-year-old female, who is undergoing IV antibiotic therapy for osteomyelitis of the lumbar spine. The patient states that her pain is better today. She was able to work with physical therapy and has been cleared to go to the bathroom without assistance. OBJECTIVE: VITAL SIGNS: Temperature 97.5, pulse 58, respiration rate 20, O2 saturation 96% on room air, and blood pressure 122/60. GENERAL: The patient is awake, alert, and oriented, in no acute distress. HEENT: Oropharynx is without erythema or exudate. LUNGS: Clear to auscultation bilaterally without wheezing or rhonchi. ABDOMEN: Soft, nontender, and nondistended. Bowel sounds present. EXTREMITIES: There is no clubbing, cyanosis, or edema. PSYCHIATRIC: The patient displays appropriate mood and affect. ASSESSMENT AND PLAN: 1. 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 We will repeat labs tomorrow to include a CBC, CMP, and CRP. Vanc troughs are being drawn as well. After February 16, she will need repeat MRI of the spine to verify that infection is clearing. 2. Intractable back pain: The patient's current regimen seems to be controlling her pain and back spasms. We will continue this. 3. Generalized deconditioning: The patient is showing improvement with physical therapy, but in my opinion, would benefit from continued therapy. However, it appears that insurance may be denying her at the end of the week. The staff of the hospital is working with her to try to come up with a good discharge plan if that is the case. 4. Hypertension: Blood pressure is better today, but it does go up when she becomes nervous about her discharge. 5. Hypothyroidism: Continue current supplementation. 6. Deep venous thrombosis prophylaxis with Lovenox. Job ID: [id number]
[2019-01-28] MEDS: Amlodipine 10 MG TAB PO SCH (19:42)
[2019-01-28] MEDS: cefTRIAXone\\ROCEPHIN 2 GM VIAL IVPB SCH (19:47)
[2019-01-29 05:16] LABS: #Basophils 0.1 thou/uL (0.0-0.2); #Eosinphils 0.2 thou/uL (0.0-0.7); #Lymphocytes 2.1 thou/uL (1.20-3.40); #Monocytes 0.6 thou/uL (0.11-0.59); #Neutrophils 5.1 thou/uL (1.40-6.50); %Basophils 1.1 % (0.0-1.0); %Eosinophils 2.7 % (0.0-10.0); %Lymphocytes 25.8 % (21.0-51.0); %Monocytes 7.9 % (0.0-10.0); %Neutrophils 62.5 % (42.0-75.0); Hemoglobin 11.5 g/dL (12.0-16.0); Mean Corpuscular Volume 90.4 fL (78.0-98.0); Mean Platelet Volume 8.1 fL (7.4-10.4); Platelet Count 284 thou/uL (130-400); RBC Distribution Width 14.1 % (11.5-14.5); Red Blood Cell (RBC) Count 4.12 mill/uL (4.20-5.40); White Blood Cell (WBC) Count 8.1 thou/uL (4.8-10.8)
[2019-01-29 05:19] LABS: MDiff Complete? YES; Manual Diff?? NO
[2019-01-29 05:36] LABS: Anion Gap 15 mmol/L (10-20); BUN (Urea Nitrogen) 23 mg/dL (9.8-20.1); CRP (Inflammatory) 1.53 mg/dL (= or < 0.5); Calc. Creatinine Clearance 86 mL/min (70-130); Calcium 9.2 mg/dL (7.8-10.44); Carbon Dioxide 26 mmol/L (23-31); Chloride 106 mmol/L (98-107); Estimated GFR-MDRD 45; Glucose 117 mg/dL (80-115); Potassium 3.7 mmol/L (3.5-5.1); Sodium 143 mmol/L (136-145)
[2019-01-29] MEDS: Levothyroxine Sodium 100 MCG TAB PO SCH (05:53)
[2019-01-29] MEDS: HYDROcodone/Acetaminophen 10/325 mg Tablet PO PRN (05:55)
[2019-01-29] MEDS: Ibuprofen 200 MG TAB PO PRN (05:56)
[2019-01-29] MEDS: Chlorthalidone 25 MG TAB PO SCH (08:47)
[2019-01-29] MEDS: Docusate 100 MG CAP PO SCH (08:48)
[2019-01-29] MEDS: Enoxaparin Sodium 40 MG/0.4 ML SYRINGE SC SCH (08:48)
[2019-01-29] MEDS: hydrALAZINE 25 MG TAB PO SCH ×3 (08:48→20:37)
[2019-01-29] MEDS: Lisinopril 20 MG TAB PO SCH (08:48)
[2019-01-29] MEDS: Nystatin Cream 15 GM TUBE TOP SCH ×4 (08:49→20:39)
[2019-01-29] MEDS: Baclofen 10 MG TAB PO SCH ×2 (08:49→20:37)
[2019-01-29] MEDS: Vancomycin HCl 1 GM in Sodium Chloride 0.9% 250 ML 250 ML IVPB SCH ×2 (10:14→22:03)
[2019-01-29] MEDS: Ondansetron ODT 4 MG TAB PO PRN (10:21)
[2019-01-29] MEDS: Diazepam 5 MG TAB PO PRN (14:56)
--- NOTE | 2019-01-29 18:09 | PRG ---
DATE OF SERVICE: 01/29/2019 SUBJECTIVE: The patient is a 63-year-old female with osteomyelitis and diskitis of the lumbar spine, who is undergoing IV antibiotic therapy until February 16. The patient had significant back spasms last night that prevented her from sleeping. She required dosing with [place] early this morning before she had eaten and she proceeded to have significant nausea. The patient required assistance to get up to go to the bathroom this morning because of her back pain and her spasm, she felt very unstable. OBJECTIVE: VITAL SIGNS: Temperature 97.7, pulse 63, respiration rate 20, O2 saturation 95% on room air, blood pressure 130/74. GENERAL: The patient is awake, alert, oriented, and in no acute distress. CARDIOVASCULAR: Regular rate and rhythm without murmurs, gallops, or rubs. LUNGS: Clear to auscultation bilaterally without wheezing or rhonchi. ABDOMEN: Soft, nontender, nondistended with bowel sounds present. EXTREMITIES: No clubbing, cyanosis, or edema. MUSCULOSKELETAL: The patient has tenderness to palpation in the lower lumbar spine and paraspinal muscles. LABORATORY DATA: BMP: Sodium 143, potassium 3.7, chloride 106, bicarb 26, BUN 23, creatinine 1.21, glucose 45, calcium 9.2. CRP 1.53. CBC: WBCs 8.1, hemoglobin 11.5, hematocrit 37.3, and platelet count 284. ASSESSMENT AND PLAN: 1. Osteomyelitis and diskitis of the lumbar spine at L2-L3: The patient continues on vancomycin and Rocephin until February 16. The patient's CRP is downtrending, but is still elevated. Vanc troughs are being monitored. 2. Acute kidney injury: The patient's creatinine has risen in the past week. This is likely secondary to her vancomycin. I will discuss the dosing with pharmacy to make certain that we are monitoring her renal function. Encourage the patient to increase fluid intake. 3. Deconditioning: The patient continues to require physical therapy. She is progressing with therapy, but due to the intermittent worsening of her back pain and back spasms, she does feel unsteady when ambulating at times. The patient is also struggling to sit up in a chair as that triggers her pain as well. 4. Back pain: I discussed the importance of the eating when she is taking her pain medication. She voiced understanding. 5. Hypertension: Blood pressure is well controlled. 6. Hypothyroidism: Continue supplementation. 7. DVT prophylaxis with Lovenox. Job ID: [id number]
[2019-01-29] MEDS: Amlodipine 10 MG TAB PO SCH (20:37)
[2019-01-29] MEDS: cefTRIAXone\\ROCEPHIN 2 GM VIAL IVPB SCH (20:38)
[2019-01-30] MEDS: Nystatin Cream 15 GM TUBE TOP SCH ×4 (08:00→20:20)
[2019-01-30] MEDS: Baclofen 10 MG TAB PO SCH ×2 (08:43→20:19)
[2019-01-30] MEDS: Chlorthalidone 25 MG TAB PO SCH (08:44)
[2019-01-30] MEDS: Docusate 100 MG CAP PO SCH (08:47)
[2019-01-30] MEDS: hydrALAZINE 25 MG TAB PO SCH ×3 (08:47→20:20)
[2019-01-30] MEDS: Lisinopril 20 MG TAB PO SCH (08:47)
[2019-01-30] MEDS: HYDROcodone/Acetaminophen 10/325 mg Tablet PO PRN ×3 (08:50→21:11)
[2019-01-30] MEDS: Enoxaparin Sodium 40 MG/0.4 ML SYRINGE SC SCH (08:53)
[2019-01-30] MEDS: Vancomycin HCl 1 GM in Sodium Chloride 0.9% 250 ML 250 ML IVPB SCH ×2 (11:15→22:00)
[2019-01-30] MEDS: Diazepam 5 MG TAB PO PRN ×2 (11:22→17:23)
[2019-01-30] MEDS: cefTRIAXone\\ROCEPHIN 2 GM VIAL IVPB SCH (20:19)
[2019-01-30] MEDS: Amlodipine 10 MG TAB PO SCH (20:20)
[2019-01-31] MEDS: Levothyroxine Sodium 100 MCG TAB PO SCH (05:38)
[2019-01-31] MEDS: Docusate 100 MG CAP PO SCH (09:04)
[2019-01-31] MEDS: Chlorthalidone 25 MG TAB PO SCH (09:04)
[2019-01-31] MEDS: Baclofen 10 MG TAB PO SCH ×2 (09:04→20:13)
[2019-01-31] MEDS: Lisinopril 20 MG TAB PO SCH (09:05)
[2019-01-31] MEDS: hydrALAZINE 25 MG TAB PO SCH ×3 (09:06→20:13)
[2019-01-31] MEDS: Nystatin Cream 15 GM TUBE TOP SCH ×4 (09:06→20:12)
[2019-01-31] MEDS: Enoxaparin Sodium 40 MG/0.4 ML SYRINGE SC SCH (09:08)
[2019-01-31] MEDS: HYDROcodone/Acetaminophen 10/325 mg Tablet PO PRN ×2 (09:09→18:50)
[2019-01-31] MEDS: Vancomycin HCl 1 GM in Sodium Chloride 0.9% 250 ML 250 ML IVPB SCH ×2 (10:59→22:08)
[2019-01-31] MEDS: Diazepam 5 MG TAB PO PRN (13:04)
[2019-01-31] MEDS: cefTRIAXone\\ROCEPHIN 2 GM VIAL IVPB SCH (20:11)
[2019-01-31] MEDS: Amlodipine 10 MG TAB PO SCH (20:13)
[2019-02-01] MEDS: Levothyroxine Sodium 100 MCG TAB PO SCH (05:14)
[2019-02-01] MEDS: Docusate 100 MG CAP PO SCH (08:51)
[2019-02-01] MEDS: Lisinopril 20 MG TAB PO SCH (08:51)
[2019-02-01] MEDS: hydrALAZINE 25 MG TAB PO SCH ×3 (08:51→20:28)
[2019-02-01] MEDS: Baclofen 10 MG TAB PO SCH ×2 (08:51→20:28)
[2019-02-01] MEDS: Enoxaparin Sodium 40 MG/0.4 ML SYRINGE SC SCH (08:52)
[2019-02-01] MEDS: Chlorthalidone 25 MG TAB PO SCH (08:52)
[2019-02-01] MEDS: Nystatin Cream 15 GM TUBE TOP SCH ×4 (08:53→20:28)
[2019-02-01] MEDS: HYDROcodone/Acetaminophen 10/325 mg Tablet PO PRN ×2 (09:03→22:01)
--- NOTE | 2019-02-01 09:57 | PRG ---
DATE OF SERVICE: 02/01/2019 SUBJECTIVE: The patient is a 63-year-old female, who is undergoing IV antibiotic therapy until February 16 for osteomyelitis and diskitis of the lumbar spine. The patient states that she was able to get up and walk and went outside for a few minutes yesterday. She tried placing a pillow under her back last night, which seemed to help a little bit with her back pain. She has no other complaints at this time. OBJECTIVE: VITAL SIGNS: Temperature 97.1, pulse 69, respiration rate 18, O2 saturation 97% on room air, and blood pressure 130/81. GENERAL: The patient is awake, alert, oriented, in no acute distress. CARDIOVASCULAR: Regular rate and rhythm without murmurs, gallops, or rubs. LUNGS: Clear to auscultation bilaterally without wheezing or rhonchi. ABDOMEN: Soft, nontender, and nondistended. Bowel sounds present. EXTREMITIES: There is no clubbing, cyanosis, or edema. PSYCHIATRIC: The patient displays appropriate mood and affect. ASSESSMENT AND PLAN: 1. Osteomyelitis/diskitis of the lumbar spine at L2-L3: The patient will continue IV vancomycin and Rocephin. I will check with pharmacy on when her next vancomycin trough is due as they have been checking every 2 to 3 days, but has not been checked since 01/27. 2. Acute kidney injury: We will repeat BMP in the morning to monitor kidney function. I did discuss increasing fluid intake with the patient and she is in agreement. 3. Deconditioning: The patient will continue working with therapy. She is starting to be able to do a little bit more as her back pain is slowly improving. 4. Intractable back pain: This is better controlled with oral medications. We will continue to monitor. 5. Hypertension: Blood pressure is well controlled. 6. Hypothyroidism: Continue supplementation. 7. DVT prophylaxis with Lovenox. Job ID: [id number]
[2019-02-01 12:16] LABS: Vancomycin, Trough 20.5 ug/mL
[2019-02-01] MEDS: Vancomycin HCl 1 GM in Sodium Chloride 0.9% 250 ML 250 ML IVPB SCH ×2 (13:02→22:01)
[2019-02-01] MEDS: Diazepam 5 MG TAB PO PRN (15:31)
[2019-02-01] MEDS: cefTRIAXone\\ROCEPHIN 2 GM VIAL IVPB SCH (20:28)
[2019-02-01] MEDS: Amlodipine 10 MG TAB PO SCH (20:28)
[2019-02-02 05:32] LABS: Anion Gap 17 mmol/L (10-20); BUN (Urea Nitrogen) 23 mg/dL (9.8-20.1); Calc. Creatinine Clearance 86 mL/min (70-130); Calcium 9.7 mg/dL (7.8-10.44); Carbon Dioxide 28 mmol/L (23-31); Chloride 104 mmol/L (98-107); Estimated GFR-MDRD 44; Glucose 93 mg/dL (80-115); Potassium 4.7 mmol/L (3.5-5.1); Sodium 144 mmol/L (136-145)
[2019-02-02] MEDS: Diazepam 5 MG TAB PO PRN ×2 (05:55→12:11)
[2019-02-02] MEDS: Levothyroxine Sodium 100 MCG TAB PO SCH (05:55)
[2019-02-02] MEDS: Baclofen 10 MG TAB PO SCH ×2 (08:41→20:19)
[2019-02-02] MEDS: Chlorthalidone 25 MG TAB PO SCH (08:41)
[2019-02-02] MEDS: Docusate 100 MG CAP PO SCH (08:41)
[2019-02-02] MEDS: Lisinopril 20 MG TAB PO SCH (08:42)
[2019-02-02] MEDS: hydrALAZINE 25 MG TAB PO SCH ×3 (08:42→20:19)
[2019-02-02] MEDS: Enoxaparin Sodium 40 MG/0.4 ML SYRINGE SC SCH (08:42)
[2019-02-02] MEDS: Nystatin Cream 15 GM TUBE TOP SCH ×4 (08:43→20:17)
[2019-02-02] MEDS: HYDROcodone/Acetaminophen 10/325 mg Tablet PO PRN (08:45)
--- NOTE | 2019-02-02 10:22 | PRG ---
DATE OF SERVICE: 02/02/2019 SUBJECTIVE: The patient is a 63-year-old female, undergoing IV antibiotic therapy for osteomyelitis of the lumbar spine. This morning, the patient was complaining of strong muscle spasm that happened just a few minutes ago in her back. She is requesting help turning over. OBJECTIVE: VITAL SIGNS: Temperature 97.3, pulse 75, respiration rate 20, O2 saturation 96% on room air, and blood pressure 117/67. GENERAL: The patient is awake, alert, oriented, and in no acute distress. CARDIOVASCULAR: Regular rate and rhythm without murmurs, gallops, or rubs. LUNGS: Clear to auscultation bilaterally without wheezing or rhonchi. ABDOMEN: Soft, nontender, and nondistended. Bowel sounds are present. EXTREMITIES: There is no clubbing, cyanosis, or edema. PSYCHIATRIC: The patient is mildly anxious. LABORATORY DATA: BMP: Sodium 144, potassium 4.7, chloride 104, bicarb 28, BUN 23, creatinine 1.22, glucose 93, and calcium 9.7. Vanc trough 20.5. ASSESSMENT AND PLAN: 1. Osteomyelitis/diskitis of the lumbar spine at L2-L3: The patient will continue IV vanc and Rocephin. The patient's vanc trough is therapeutic. Antibiotics are to continue until February 16. 2. Intractable back pain and spasms: We will continue baclofen and additional pain medication. The patient does have a degree of anxiety, which causes her to anticipate her having pain before movements. 3. Acute kidney injury: Creatinine is stable this morning. We will continue to monitor. 4. Hypertension: Blood pressure is well controlled. 5. Hypothyroidism: Continue supplementation. 6. Deconditioning: We will continue PT and OT this week. Job ID: [id number]
[2019-02-02] MEDS: Vancomycin HCl 1 GM in Sodium Chloride 0.9% 250 ML 250 ML IVPB SCH ×2 (10:33→22:18)
[2019-02-02] MEDS: Ibuprofen 200 MG TAB PO PRN (12:11)
[2019-02-02] MEDS ORDERED: Ketorolac Tromethamine 30 MG/ML VIAL IVP PRN (14:08)
[2019-02-02] MEDS: cefTRIAXone\\ROCEPHIN 2 GM VIAL IVPB SCH (20:17)
[2019-02-02] MEDS: Temazepam 15 MG CAP PO PRN (20:19)
[2019-02-02] MEDS: Amlodipine 10 MG TAB PO SCH (20:20)
[2019-02-03] MEDS: Levothyroxine Sodium 100 MCG TAB PO SCH (06:06)
[2019-02-03] MEDS: Docusate 100 MG CAP PO SCH (08:18)
[2019-02-03] MEDS: Baclofen 10 MG TAB PO SCH ×2 (08:18→20:10)
[2019-02-03] MEDS: Chlorthalidone 25 MG TAB PO SCH (08:18)
[2019-02-03] MEDS: Enoxaparin Sodium 40 MG/0.4 ML SYRINGE SC SCH (08:19)
[2019-02-03] MEDS: hydrALAZINE 25 MG TAB PO SCH ×3 (08:20→20:09)
[2019-02-03] MEDS: Lisinopril 20 MG TAB PO SCH (08:20)
[2019-02-03] MEDS: Diazepam 5 MG TAB PO PRN ×2 (08:21→14:57)
[2019-02-03] MEDS: Nystatin Cream 15 GM TUBE TOP SCH ×4 (08:47→20:09)
[2019-02-03] MEDS ORDERED: Ibuprofen 800 MG TAB PO PRN (08:55)
--- NOTE | 2019-02-03 09:53 | PRG ---
DATE OF SERVICE: 02/03/2019 SUBJECTIVE: The patient is a 63-year-old female who is here at [facility] for IV antibiotic therapy for osteomyelitis of the lumbar spine until 02/16. The patient is feeling much better this morning. She states she was able to sleep very well after receiving a dose of Toradol last night and "feels like a whole new person." OBJECTIVE: VITAL SIGNS: Temp 96.7, pulse 62, respiration rate 20, O2 saturation 98% on room air, blood pressure 140/83. GENERAL: The patient is awake, alert, oriented, and in no acute distress. She is sitting up in a wheelchair this morning. CARDIOVASCULAR: Regular rate and rhythm without murmurs, gallops, or rubs. LUNGS: Clear to auscultation bilaterally without wheezing or rhonchi. ABDOMEN: Soft, nontender, nondistended. Bowel sounds present. EXTREMITIES: There is no clubbing, cyanosis, or edema. PSYCHIATRIC: The patient is very jovial this morning and displays an appropriate mood and affect. ASSESSMENT AND PLAN: 1. Osteomyelitis/diskitis of the lumbar spine at L2-L3: We will continue IV vancomycin and Rocephin. Vanc troughs were drawn periodically. She will be due for labs in 2 days. 2. Deconditioning: The patient is looking forward to having a shower this morning and working with therapy and she is feeling much better this morning. 3. Intractable back pain: Pain is much better since receiving Toradol. I will try to add an oral NSAID today to see if that works as well as the Toradol does. Continue baclofen for muscle spasms. 4. Hypertension: Well controlled. 5. Acute kidney injury: Creatinine is stable. We will continue to monitor. The patient is increasing her oral fluid intake. 6. Hypothyroidism: Continue supplementation. 7. Deep vein thrombosis prophylaxis with Lovenox. Job ID: [id number]
[2019-02-03] MEDS: Vancomycin HCl 1 GM in Sodium Chloride 0.9% 250 ML 250 ML IVPB SCH ×2 (10:50→22:01)
[2019-02-03] MEDS: Ibuprofen 200 MG TAB PO PRN (10:52)
[2019-02-03] MEDS: cefTRIAXone\\ROCEPHIN 2 GM VIAL IVPB SCH (20:09)
[2019-02-03] MEDS: Temazepam 15 MG CAP PO PRN (20:09)
[2019-02-03] MEDS: Amlodipine 10 MG TAB PO SCH (20:10)
[2019-02-03] MEDS: HYDROcodone/Acetaminophen 10/325 mg Tablet PO PRN (20:10)
[2019-02-04] MEDS: Levothyroxine Sodium 100 MCG TAB PO SCH (06:08)
[2019-02-04] MEDS: Baclofen 10 MG TAB PO SCH ×2 (08:15→20:26)
[2019-02-04] MEDS: Diazepam 5 MG TAB PO PRN ×3 (08:15→20:27)
[2019-02-04] MEDS: HYDROcodone/Acetaminophen 10/325 mg Tablet PO PRN (09:23)
[2019-02-04] MEDS: Enoxaparin Sodium 40 MG/0.4 ML SYRINGE SC SCH (09:25)
[2019-02-04] MEDS: Chlorthalidone 25 MG TAB PO SCH (09:26)
[2019-02-04] MEDS: Docusate 100 MG CAP PO SCH (09:26)
[2019-02-04] MEDS: Lisinopril 20 MG TAB PO SCH (09:32)
[2019-02-04] MEDS: hydrALAZINE 25 MG TAB PO SCH ×3 (09:32→20:27)
[2019-02-04] MEDS: Nystatin Cream 15 GM TUBE TOP SCH ×4 (09:33→20:27)
[2019-02-04] MEDS: Vancomycin HCl 1 GM in Sodium Chloride 0.9% 250 ML 250 ML IVPB SCH ×2 (11:06→22:19)
[2019-02-04] MEDS: Amlodipine 10 MG TAB PO SCH (20:26)
[2019-02-04] MEDS: cefTRIAXone\\ROCEPHIN 2 GM VIAL IVPB SCH (20:26)
[2019-02-04] MEDS: Ibuprofen 200 MG TAB PO PRN (20:27)
[2019-02-05] MEDS: Levothyroxine Sodium 100 MCG TAB PO SCH (05:45)
[2019-02-05] MEDS: Ibuprofen 200 MG TAB PO PRN ×3 (05:45→20:15)
[2019-02-05] MEDS: HYDROcodone/Acetaminophen 10/325 mg Tablet PO PRN ×2 (08:33→14:36)
[2019-02-05] MEDS: Docusate 100 MG CAP PO SCH (08:34)
[2019-02-05] MEDS: Chlorthalidone 25 MG TAB PO SCH (08:34)
[2019-02-05] MEDS: hydrALAZINE 25 MG TAB PO SCH ×3 (08:34→20:14)
[2019-02-05] MEDS: Baclofen 10 MG TAB PO SCH ×2 (08:34→20:14)
[2019-02-05] MEDS: Lisinopril 20 MG TAB PO SCH (08:34)
[2019-02-05] MEDS: Nystatin Cream 15 GM TUBE TOP SCH ×4 (08:35→20:14)
[2019-02-05] MEDS: Enoxaparin Sodium 40 MG/0.4 ML SYRINGE SC SCH (08:39)
--- NOTE | 2019-02-05 09:56 | PRG ---
DATE OF SERVICE: 02/05/2019 SUBJECTIVE: The patient is a 63-year-old female undergoing IV antibiotic therapy for osteomyelitis in the lumbar spine. The patient was getting out of the shower when I first arrived, was able to get dressed on her own and ambulate with a walker to her wheelchair. The patient continues to have back pain. It is now a little bit more intermittent than it was, but comes on whenever she is doing things or with prolonged sitting. She noted yesterday her back was really hurting after having to sit in the hallway for [employer] warning yesterday. OBJECTIVE: VITAL SIGNS: Temperature 98.1, pulse 62, respiration rate 16, O2 saturation 96% on room air, and blood pressure 151/71. GENERAL: The patient is awake, alert, and oriented, and in no acute distress. CARDIOVASCULAR: Regular rate and rhythm without murmurs, gallops, or rubs. LUNGS: Clear to auscultation bilaterally without wheezing or rhonchi. ABDOMEN: Soft, nontender, and nondistended with bowel sounds present. EXTREMITIES: There is no clubbing, cyanosis, or edema. ASSESSMENT AND PLAN: 1. Osteomyelitis/diskitis of the lumbar spine at L2-L3: We will continue vancomycin and Rocephin. The patient is due for labs today, but these have not been drawn yet. She has followup with Dr. Berumen scheduled on 02/12. 2. Generalized deconditioning: The patient is improving with therapy. She is ambulating slowly with a walker. 3. Back pain: Continue current medications. We did change her NSAID to an oral medication. We will continue to monitor her pain. 4. Hypertension: Blood pressure is elevated today, but in general it has been well controlled. We will continue to monitor. 5. Hypothyroidism: Continue supplementation. 6. Deep venous thrombosis prophylaxis with Lovenox. Job ID: [id number]
[2019-02-05] MEDS: Vancomycin HCl 1 GM in Sodium Chloride 0.9% 250 ML 250 ML IVPB SCH ×2 (11:50→22:07)
[2019-02-05] MEDS: Ondansetron ODT 4 MG TAB PO PRN (18:17)
[2019-02-05] MEDS: Amlodipine 10 MG TAB PO SCH (20:14)
[2019-02-05] MEDS: cefTRIAXone\\ROCEPHIN 2 GM VIAL IVPB SCH (20:14)
[2019-02-06] MEDS: Levothyroxine Sodium 100 MCG TAB PO SCH (05:26)
[2019-02-06] MEDS: Ibuprofen 200 MG TAB PO PRN ×3 (05:26→20:23)
[2019-02-06] MEDS: Nystatin Cream 15 GM TUBE TOP SCH (09:17)
[2019-02-06] MEDS: hydrALAZINE 25 MG TAB PO SCH ×3 (09:19→20:22)
[2019-02-06] MEDS: Diazepam 5 MG TAB PO PRN ×2 (09:19→20:38)
[2019-02-06] MEDS: Baclofen 10 MG TAB PO SCH ×2 (09:19→20:22)
[2019-02-06] MEDS: Chlorthalidone 25 MG TAB PO SCH (09:19)
[2019-02-06] MEDS: Docusate 100 MG CAP PO SCH (09:19)
[2019-02-06] MEDS: Lisinopril 20 MG TAB PO SCH (09:20)
[2019-02-06] MEDS: Enoxaparin Sodium 40 MG/0.4 ML SYRINGE SC SCH (09:20)
--- NOTE | 2019-02-06 10:26 | PRG ---
DATE OF SERVICE: 02/06/2019 SUBJECTIVE: The patient is a 63-year-old female, who is undergoing IV antibiotics for osteomyelitis of the lumbar spine. The patient states that she spaced out her tasks yesterday and that seemed to help with pain control instead of doing all of her therapy and all of her daily tasks, all in the morning and then being in lot of pain as the day went by. OBJECTIVE: VITAL SIGNS: Temperature 97.4, pulse 62, respiration rate 16, O2 saturation 98% on room air, and blood pressure 127/76. GENERAL: The patient is awake, alert, and oriented, in no acute distress. CARDIOVASCULAR: Regular rate and rhythm without murmurs, gallops, or rubs. LUNGS: Clear to auscultation bilaterally without wheezing or rhonchi. ABDOMEN: Soft, nondistended with bowel sounds present. The patient does have some tenderness to palpation around the site as she has been receiving Lovenox. EXTREMITIES: There is no clubbing, cyanosis, or edema. PSYCHIATRIC: The patient displays an appropriate mood and affect. ASSESSMENT AND PLAN: 1. Osteomyelitis/diskitis of the lumbar spine at L2-L3: The patient will continue IV antibiotics with vanc and Rocephin until February 16. She has a followup with Dr. Berumen on February 12. I will add labs as they were drawn yesterday. 2. Deconditioning: The patient's weakness is slowly improving, though she does get tired easily. We will continue therapy. 3. Chronic back pain: We will continue current medications. Medication management. 4. Hypertension: Blood pressure, stable. 5. Hypothyroidism: Continue supplementation. Job ID: [id number]
[2019-02-06 10:39] LABS: Vancomycin, Trough 21.7 ug/mL
[2019-02-06 11:34] LABS: #Basophils 0.1 thou/uL (0.0-0.2); #Eosinphils 0.2 thou/uL (0.0-0.7); #Lymphocytes 1.8 thou/uL (1.20-3.40); #Monocytes 0.5 thou/uL (0.11-0.59); #Neutrophils 4.8 thou/uL (1.40-6.50); %Basophils 0.9 % (0.0-1.0); %Eosinophils 2.4 % (0.0-10.0); %Lymphocytes 24.3 % (21.0-51.0); %Monocytes 7.3 % (0.0-10.0); %Neutrophils 65.1 % (42.0-75.0); Hemoglobin 12.8 g/dL (12.0-16.0); Mean Corpuscular HGB CONC 31.3 g/dL (32.0-36.0); Mean Corpuscular Hemoglobin 28.2 pg (27.0-31.0); Mean Corpuscular Volume 90.1 fL (78.0-98.0); Mean Platelet Volume 8.1 fL (7.4-10.4); Platelet Count 305 thou/uL (130-400); RBC Distribution Width 13.2 % (11.5-14.5); Red Blood Cell (RBC) Count 4.54 mill/uL (4.20-5.40); White Blood Cell (WBC) Count 7.3 thou/uL (4.8-10.8)
[2019-02-06] MEDS: Vancomycin HCl 1 GM in Sodium Chloride 0.9% 250 ML 250 ML IVPB SCH ×2 (11:44→23:09)
[2019-02-06 11:56] LABS: Anion Gap 15 mmol/L (10-20); BUN (Urea Nitrogen) 19 mg/dL (9.8-20.1); CRP (Inflammatory) 2.46 mg/dL (= or < 0.5); Calc. Creatinine Clearance 93 mL/min (70-130); Calcium 9.5 mg/dL (7.8-10.44); Carbon Dioxide 28 mmol/L (23-31); Chloride 103 mmol/L (98-107); Estimated GFR-MDRD 49; Glucose 118 mg/dL (80-115); Potassium 4.3 mmol/L (3.5-5.1); Sodium 142 mmol/L (136-145)
[2019-02-06] MEDS: Amlodipine 10 MG TAB PO SCH (20:21)
[2019-02-06] MEDS: cefTRIAXone\\ROCEPHIN 2 GM VIAL IVPB SCH (20:22)
[2019-02-07] MEDS: Levothyroxine Sodium 100 MCG TAB PO SCH (05:14)
[2019-02-07] MEDS: Chlorthalidone 25 MG TAB PO SCH (08:45)
[2019-02-07] MEDS: Baclofen 10 MG TAB PO SCH ×2 (08:45→21:14)
[2019-02-07] MEDS: Docusate 100 MG CAP PO SCH (08:46)
[2019-02-07] MEDS: Lisinopril 20 MG TAB PO SCH (08:46)
[2019-02-07] MEDS: Enoxaparin Sodium 40 MG/0.4 ML SYRINGE SC SCH (08:46)
[2019-02-07] MEDS: hydrALAZINE 25 MG TAB PO SCH ×3 (08:46→21:14)
[2019-02-07] MEDS: Diazepam 5 MG TAB PO PRN (08:47)
[2019-02-07] MEDS: Vancomycin HCl 1 GM in Sodium Chloride 0.9% 250 ML 250 ML IVPB SCH ×2 (10:22→22:34)
[2019-02-07] MEDS: HYDROcodone/Acetaminophen 10/325 mg Tablet PO PRN (12:51)
[2019-02-07] MEDS ORDERED: Amlodipine 10 MG TAB PO SCH (21:00)
[2019-02-07] MEDS: Amlodipine 10 MG TAB PO SCH (21:13)
[2019-02-07] MEDS: cefTRIAXone\\ROCEPHIN 2 GM VIAL IVPB SCH (21:13)
--- NOTE | 2019-02-07 22:37 | PRG ---
DATE OF SERVICE: 02/07/2019 SUBJECTIVE: The patient is a 63-year-old female, undergoing IV antibiotic therapy for osteomyelitis of the lumbar spine. The patient had some hypotension last night with systolics in the 80s, but she was asymptomatic during that time. Her blood pressure medicines were held, and her blood pressure is improved this morning. OBJECTIVE: VITAL SIGNS: Temperature 98, pulse 66, respiratory rate 20, O2 saturation 96% on room air, blood pressure 103/56. GENERAL: The patient is awake, alert, oriented, in no acute distress. CARDIOVASCULAR: Regular rate and rhythm without murmurs, gallops, or rubs. LUNGS: Clear to auscultation bilaterally without wheezing or rhonchi. ABDOMEN: Soft, nontender, nondistended. Bowel sounds present. EXTREMITIES: There is no clubbing, cyanosis, or edema. PSYCHIATRIC: The patient displays appropriate mood and affect. LABORATORY DATA: CBC: WBC 7.3, hemoglobin 12.8, hematocrit 40.9, platelets 305. BMP: Sodium 142, potassium 4.3, chloride 103, bicarb 28, BUN 19, creatinine 1.12, glucose 118, calcium 9.5. CRP 2.46. Vancomycin trough 21.7. ASSESSMENT AND PLAN: 1. Osteomyelitis/diskitis of the lumbar spine at L2-L3: The patient will continue on vancomycin and Rocephin. The patient's vancomycin is therapeutic. The patient's CRP has gone up a little bit. We will continue to monitor for signs of infection. She does have a followup scheduled with Dr. Berumen on 02/12. 2. Deconditioning: The patient states that she was able to get up and walk a little bit with the nurse, and she was able to take a shower without needing pain medication, though she did require dosing after her shower today. 3. Back pain: Continue current pain medication regimen. 4. Hypertension with superimposed hypotension: We will hold her blood pressure medications tonight and have holding parameters for systolic less than 110. 5. Hypothyroidism: Continue supplementation. Job ID: [id number]
[2019-02-08 01:06] VITALS: BMI 41.3
[2019-02-08] MEDS: Levothyroxine Sodium 100 MCG TAB PO SCH (05:50)
[2019-02-08] MEDS: Baclofen 10 MG TAB PO SCH ×2 (08:40→20:47)
[2019-02-08] MEDS: Chlorthalidone 25 MG TAB PO SCH (08:40)
[2019-02-08] MEDS: Docusate 100 MG CAP PO SCH (08:41)
[2019-02-08] MEDS: hydrALAZINE 25 MG TAB PO SCH ×3 (08:42→20:49)
[2019-02-08] MEDS: Lisinopril 20 MG TAB PO SCH (08:42)
[2019-02-08] MEDS: Enoxaparin Sodium 40 MG/0.4 ML SYRINGE SC SCH (08:42)
[2019-02-08] MEDS: Ibuprofen 200 MG TAB PO PRN (08:43)
--- NOTE | 2019-02-08 10:07 | PRG ---
DATE OF SERVICE: 02/08/2019 SUBJECTIVE: The patient is undergoing IV antibiotics for osteomyelitis of the lumbar spine. Her blood pressure medicines were held last night and systolic this morning. It was back in the 140s. She is sitting in a chair and family is visiting. OBJECTIVE: VITAL SIGNS: Temperature 97.8, pulse 62, respiration rate 16, O2 saturation 97% on room air, and blood pressure 142/82. GENERAL: The patient is awake, alert, oriented, and in no acute distress. CARDIOVASCULAR: Regular rate and rhythm without murmurs, gallops, or rubs. LUNGS: Clear to auscultation bilaterally without wheezing or rhonchi. ABDOMEN: Soft, nontender, and nondistended. Bowel sounds present. EXTREMITIES: There is no clubbing, cyanosis, or edema. ASSESSMENT AND PLAN: 1. Osteomyelitis of the lumbar spine: We will continue IV vancomycin and Rocephin. Continue to trend her labs and check vanc troughs. 2. Intractable back pain: Pain is improving with current regimen. 3. Deconditioning: The patient is slowly able to do more and more for herself, but she is continuing to benefit from therapy. 4. Hypertension: Blood pressure this morning is 142/82, which her oral medications were held last night. She has received her morning medications. We will continue to monitor. 5. Hypothyroidism: Continue supplementation. Job ID: [id number]
[2019-02-08] MEDS: Vancomycin HCl 1 GM in Sodium Chloride 0.9% 250 ML 250 ML IVPB SCH ×2 (10:45→23:01)
[2019-02-08] MEDS: Diazepam 5 MG TAB PO PRN (13:10)
[2019-02-08] MEDS: HYDROcodone/Acetaminophen 10/325 mg Tablet PO PRN (17:17)
[2019-02-08] MEDS: cefTRIAXone\\ROCEPHIN 2 GM VIAL IVPB SCH (20:46)
[2019-02-08] MEDS: Amlodipine 10 MG TAB PO SCH (20:49)
[2019-02-09] MEDS: Ibuprofen 200 MG TAB PO PRN (05:50)
[2019-02-09] MEDS: Levothyroxine Sodium 100 MCG TAB PO SCH (05:50)
[2019-02-09] MEDS: Lisinopril 20 MG TAB PO SCH (08:29)
[2019-02-09] MEDS: Diazepam 5 MG TAB PO PRN ×2 (08:29→20:36)
[2019-02-09] MEDS: Baclofen 10 MG TAB PO SCH ×2 (08:30→20:35)
[2019-02-09] MEDS: Docusate 100 MG CAP PO SCH (08:30)
[2019-02-09] MEDS: Chlorthalidone 25 MG TAB PO SCH (08:30)
[2019-02-09] MEDS: Enoxaparin Sodium 40 MG/0.4 ML SYRINGE SC SCH (08:31)
[2019-02-09] MEDS: hydrALAZINE 25 MG TAB PO SCH ×3 (08:31→20:36)
--- NOTE | 2019-02-09 10:34 | PRG ---
DATE OF SERVICE: 02/09/2019 SUBJECTIVE: The patient is a 63-year-old female, undergoing IV antibiotic therapy until 02/16 for osteomyelitis of the lumbar spine. She has also been having problems with hypotension at night, and last night, her blood pressure is 105/53 and her blood pressure medications were held. This morning, her blood pressure is 150/63. OBJECTIVE: VITAL SIGNS: Temperature 96.6, pulse 62, respiration rate 16, O2 saturation 97% on room air, blood pressure 150/63. GENERAL: The patient is awake, alert, oriented, in no acute distress. CARDIOVASCULAR: Regular rate and rhythm without murmurs, gallops, or rubs. LUNGS: Clear to auscultation bilaterally without wheezing or rhonchi. ABDOMEN: Soft, nontender, nondistended with bowel sounds present. EXTREMITIES: There is no clubbing, cyanosis, or edema. ASSESSMENT AND PLAN: 1. Osteomyelitis of the lumbar spine: The patient needs IV antibiotics until 02/16. Currently, her insurance is approved for 02/01. Her skilled stay is approved for 02/11 with insurance. I am hopeful that this can be extended through the , so that she can complete her IV antibiotics. She has followup with Dr. Berumen scheduled on 02/12. We will continue IV vancomycin and Rocephin with routine vanc trough checks. 2. Hypotension superimposed on hypertension: We added holding parameters. I am going to decrease her dose of Norvasc from 10 to 5 mg at night and monitor the patient's blood pressure. 3. Deconditioning: The patient continues to benefit from physical therapy. 4. Back pain: The patient did have increased back pain and spasms last night, was able to get up and walk a little bit, which seemed to help for few minutes. 5. Hypothyroidism: Continue supplementation. Job ID: [id number]
[2019-02-09] MEDS: Vancomycin HCl 1 GM in Sodium Chloride 0.9% 250 ML 250 ML IVPB SCH ×2 (10:37→22:01)
[2019-02-09] MEDS: HYDROcodone/Acetaminophen 10/325 mg Tablet PO PRN (11:13)
[2019-02-09] MEDS: Amlodipine 10 MG TAB PO SCH (20:35)
[2019-02-09] MEDS: cefTRIAXone\\ROCEPHIN 2 GM VIAL IVPB SCH (20:36)
[2019-02-10] MEDS: Levothyroxine Sodium 100 MCG TAB PO SCH (06:06)
[2019-02-10] MEDS: Ibuprofen 200 MG TAB PO PRN (06:06)
[2019-02-10] MEDS: HYDROcodone/Acetaminophen 10/325 mg Tablet PO PRN (06:09)
[2019-02-10] MEDS: Chlorthalidone 25 MG TAB PO SCH (08:40)
[2019-02-10] MEDS: Enoxaparin Sodium 40 MG/0.4 ML SYRINGE SC SCH (08:40)
[2019-02-10] MEDS: Baclofen 10 MG TAB PO SCH ×2 (08:41→20:09)
[2019-02-10] MEDS: hydrALAZINE 25 MG TAB PO SCH ×3 (08:41→20:09)
[2019-02-10] MEDS: Docusate 100 MG CAP PO SCH (08:41)
[2019-02-10] MEDS: Lisinopril 20 MG TAB PO SCH (08:41)
--- NOTE | 2019-02-10 09:27 | PRG ---
DATE OF SERVICE: 02/10/2019 SUBJECTIVE: The patient is a 63-year-old female, who is undergoing IV antibiotic therapy for osteomyelitis of the lumbar spine. The patient had some nausea this morning. She has not been taking a shower and notes that she did not sleep very well last night. OBJECTIVE: VITAL SIGNS: Temperature 98.1, pulse 71, respiration rate 18, O2 saturation 97% on room air, and blood pressure 126/67. GENERAL: The patient is awake, alert, and oriented, in no acute distress. CARDIOVASCULAR: Regular rate and rhythm without murmurs, gallops, or rubs. LUNGS: Clear to auscultation bilaterally without wheezing or rhonchi. ABDOMEN: Soft, nontender, and nondistended with bowel sounds present. EXTREMITIES: There is no clubbing, cyanosis, or edema. ASSESSMENT AND PLAN: 1. Osteomyelitis/diskitis of the lumbar spine at L2-3: We will continue IV vancomycin and Rocephin. The patient has a followup scheduled with Dr. Berumen of Infectious Disease on 02/12/2019. She will be due for labs on morning. 2. Hypotension: The patient's blood pressure is improved. I cut her Norvasc into half yesterday and this seems to have helped. 3. Generalized deconditioning: The patient's strength is slowly improving. She still requires frequent breaks and is still benefitting from therapy. 4. Back pain: We found a good regimen for her and we will continue this. 5. Hypothyroidism: Continue supplementation. 6. Disposition: We are trying to get an additional 5 days as the patient's last covered day currently is the , but she needs antibiotics until the . Job ID: [id number]
[2019-02-10] MEDS: Vancomycin HCl 1 GM in Sodium Chloride 0.9% 250 ML 250 ML IVPB SCH ×2 (10:57→22:33)
[2019-02-10] MEDS: Diazepam 5 MG TAB PO PRN ×2 (15:44→20:11)
[2019-02-10] MEDS: Amlodipine 10 MG TAB PO SCH (20:08)
[2019-02-10] MEDS: cefTRIAXone\\ROCEPHIN 2 GM VIAL IVPB SCH (20:09)
[2019-02-11] MEDS: Levothyroxine Sodium 100 MCG TAB PO SCH (05:01)
[2019-02-11] MEDS: Ibuprofen 200 MG TAB PO PRN ×3 (05:01→20:20)
[2019-02-11] MEDS: Baclofen 10 MG TAB PO SCH ×2 (08:33→20:19)
[2019-02-11] MEDS: hydrALAZINE 25 MG TAB PO SCH ×3 (08:34→20:19)
[2019-02-11] MEDS: Enoxaparin Sodium 40 MG/0.4 ML SYRINGE SC SCH (08:34)
[2019-02-11] MEDS: Chlorthalidone 25 MG TAB PO SCH (08:34)
[2019-02-11] MEDS: Docusate 100 MG CAP PO SCH (08:34)
[2019-02-11] MEDS: Lisinopril 20 MG TAB PO SCH (08:35)
[2019-02-11] MEDS: Diazepam 5 MG TAB PO PRN ×2 (08:36→20:20)
[2019-02-11 11:15] LABS: Vancomycin, Trough 20.4 ug/mL
[2019-02-11] MEDS: Vancomycin HCl 1 GM in Sodium Chloride 0.9% 250 ML 250 ML IVPB SCH ×2 (11:37→22:33)
[2019-02-11] MEDS ORDERED: Sodium Chloride 0.9% 10 ML ONE (19:57)
[2019-02-11] MEDS: Amlodipine 10 MG TAB PO SCH (20:18)
[2019-02-11] MEDS: cefTRIAXone\\ROCEPHIN 2 GM VIAL IVPB SCH (20:19)
[2019-02-12 05:27] LABS: #Basophils 0.1 thou/uL (0.0-0.2); #Eosinphils 0.3 thou/uL (0.0-0.7); #Lymphocytes 1.5 thou/uL (1.20-3.40); #Monocytes 0.6 thou/uL (0.11-0.59); #Neutrophils 4.2 thou/uL (1.40-6.50); %Monocytes 8.5 % (0.0-10.0); %Neutrophils 63.5 % (42.0-75.0); Hemoglobin 11.6 g/dL (12.0-16.0); Mean Corpuscular HGB CONC 31.1 g/dL (32.0-36.0); Mean Corpuscular Hemoglobin 28.2 pg (27.0-31.0); Mean Corpuscular Volume 90.9 fL (78.0-98.0); Mean Platelet Volume 7.5 fL (7.4-10.4); Platelet Count 255 thou/uL (130-400); RBC Distribution Width 13.6 % (11.5-14.5); White Blood Cell (WBC) Count 6.7 thou/uL (4.8-10.8)
[2019-02-12] MEDS: Levothyroxine Sodium 100 MCG TAB PO SCH (05:35)
[2019-02-12] MEDS: Ibuprofen 200 MG TAB PO PRN ×2 (05:36→12:44)
[2019-02-12 05:45] LABS: ALT (SGPT) 18 U/L (8-55); AST (SGOT) 8 U/L (5-34); Albumin 3.5 g/dL (3.4-4.8); Alkaline Phosphatase 75 U/L (40-150); Anion Gap 14 mmol/L (10-20); BUN (Urea Nitrogen) 24 mg/dL (9.8-20.1); Bilirubin, Total 0.4 mg/dL (0.2-1.2); CRP (Inflammatory) 1.17 mg/dL (= or < 0.5); Calc. Creatinine Clearance 89 mL/min (70-130); Calcium 9.2 mg/dL (7.8-10.44); Carbon Dioxide 27 mmol/L (23-31); Chloride 106 mmol/L (98-107); Estimated GFR-MDRD 45; Globulin 2.9 g/dL (2.4-3.5); Glucose 96 mg/dL (80-115); Potassium 3.6 mmol/L (3.5-5.1); Protein, Total 6.4 g/dL (6.0-8.3); Sodium 143 mmol/L (136-145)
[2019-02-12] MEDS: Baclofen 10 MG TAB PO SCH ×2 (08:28→21:07)
[2019-02-12] MEDS: Enoxaparin Sodium 40 MG/0.4 ML SYRINGE SC SCH (08:29)
[2019-02-12] MEDS: Chlorthalidone 25 MG TAB PO SCH (08:29)
[2019-02-12] MEDS: Docusate 100 MG CAP PO SCH (08:29)
[2019-02-12] MEDS: hydrALAZINE 25 MG TAB PO SCH ×3 (08:29→21:06)
[2019-02-12] MEDS: Diazepam 5 MG TAB PO PRN ×2 (08:30→17:31)
[2019-02-12] MEDS: Lisinopril 20 MG TAB PO SCH (08:30)
--- NOTE | 2019-02-12 09:43 | PRG ---
DATE OF SERVICE: 02/11/2019 SUBJECTIVE: The patient is a 63-year-old female, who is undergoing IV antibiotic therapy for osteomyelitis of the lumbar spine. Today is the last covered day for insurance and we are waiting to hear if they will approve an additional 5 days as her IV antibiotics should run through 02/16. OBJECTIVE: VITAL SIGNS: Temperature 98.3, pulse 63, respiration rate 18, O2 saturation 96% on room air, and blood pressure 128/77. GENERAL: The patient is awake, alert, and oriented, in no acute distress. She is sitting up in her wheelchair with a friend at bedside. CARDIOVASCULAR: Regular rate and rhythm without murmurs, gallops, or rubs. LUNGS: Clear to auscultation bilaterally without wheezing or rhonchi. ABDOMEN: Soft, nontender, and nondistended with bowel sounds present. EXTREMITIES: There is no clubbing, cyanosis, or edema. LABORATORY DATA: Vanc trough 20.4. ASSESSMENT AND PLAN: 1. Osteomyelitis of the lumbar spine at L2-L3: The patient is continuing IV vanc and Rocephin. Her vanc trough is therapeutic. She is due for repeat labs tomorrow and has an appointment with Dr. Berumen tomorrow morning. 2. Hypertension: Blood pressure is well controlled. 3. Back pain: We will continue current pain medication regimen as it is working well. 4. Deconditioning: She is continuing to benefit from therapy services. 5. Hypothyroidism: Continue supplementation. Job ID: [id number] MTDD
--- NOTE | 2019-02-12 09:57 | PRG ---
DATE OF SERVICE: 02/12/2019 SUBJECTIVE: The patient is a 63-year-old female undergoing IV antibiotic therapy for osteomyelitis of the lumbar spine. The patient has an appointment today with Dr. Berumen. We are still waiting to hear about insurance approval for the last 4 days of her IV antibiotics as the decision is still pending. OBJECTIVE: VITAL SIGNS: Temp 97.7, pulse 68, respiration rate 18, O2 saturation 98% on room air, blood pressure 129/78. GENERAL: The patient is awake, alert, and oriented, in no acute distress. CARDIOVASCULAR: Regular rate and rhythm without murmurs, gallops, or rubs. LUNGS: Clear to auscultation bilaterally without wheezing or rhonchi. ABDOMEN: Soft, nontender, nondistended with bowel sounds present. EXTREMITIES: There is no clubbing, cyanosis, or edema. PSYCHIATRIC: The patient displays appropriate mood and affect. LABORATORY DATA: CBC: WBC 6.7, hemoglobin 11.6, hematocrit 37.3, platelet count 255. CMP: Sodium 143, potassium 3.6, chloride 106, bicarb 27, BUN 24, creatinine 1.20, glucose 96, calcium 9.2, total bilirubin 0.4, AST 8, ALT 18, alkaline phosphatase 75, total protein 6.4, albumin 3.5. CRP is 1.17. ASSESSMENT AND PLAN: 1. Osteomyelitis of the lumbar spine at L2-L3: The patient continues on vancomycin and Rocephin. She has an appointment with Dr. Berumen today. Her CRP has improved from 2.46 to 1.17. We will follow up with Dr. Berumen' recommendations regarding further antibiotics. 2. Deconditioning: She is continuing therapy while here and is slowly able to do a little bit more each week. 3. Hypertension: Blood pressure is controlled. 4. Hypothyroidism. Continue supplementation. 5. Back pain: This is controlled with current regimen. Job ID: [id number]
[2019-02-12] MEDS: Vancomycin HCl 1 GM in Sodium Chloride 0.9% 250 ML 250 ML IVPB SCH ×3 (12:43→23:08)
[2019-02-12] MEDS: cefTRIAXone\\ROCEPHIN 2 GM VIAL IVPB SCH (21:05)
[2019-02-12] MEDS: Temazepam 15 MG CAP PO PRN (21:06)
[2019-02-12] MEDS: Amlodipine 10 MG TAB PO SCH (21:06)
[2019-02-13] MEDS: Levothyroxine Sodium 100 MCG TAB PO SCH (05:23)
[2019-02-13] MEDS: Docusate 100 MG CAP PO SCH (08:58)
[2019-02-13] MEDS: Diazepam 5 MG TAB PO PRN (08:58)
[2019-02-13] MEDS: Baclofen 10 MG TAB PO SCH ×2 (08:59→20:45)
[2019-02-13] MEDS: hydrALAZINE 25 MG TAB PO SCH ×3 (09:00→20:46)
[2019-02-13] MEDS: Chlorthalidone 25 MG TAB PO SCH (09:01)
[2019-02-13] MEDS: Lisinopril 20 MG TAB PO SCH (09:02)
[2019-02-13] MEDS: Enoxaparin Sodium 40 MG/0.4 ML SYRINGE SC SCH (09:04)
[2019-02-13] MEDS: Vancomycin HCl 1 GM in Sodium Chloride 0.9% 250 ML 250 ML IVPB SCH ×2 (09:57→23:23)
--- NOTE | 2019-02-13 11:00 | PRG ---
DATE OF SERVICE: 02/13/2019 SUBJECTIVE: The patient is a 63-year-old female, undergoing IV antibiotic therapy for osteomyelitis of the lumbar spine. The patient saw Dr. Berumen yesterday, who recommends two additional antibiotics with a new stop date of March 03 as the patient's CRP is improving, but is not yet back to normal. The patient's insurance so far has approved through 02/16 and we will continue to try to get that extended so that she can get her full course of IV antibiotics. The patient notes that yesterday was a very busy day for her, she did not get much rest and her back is hurting a lot more today. She needed help from the nursing staff to move her right leg to get out of bed this morning because it was so stiff. OBJECTIVE: VITAL SIGNS: Temperature 98.1, pulse 62, respiration rate 18, O2 saturation 96% on room air, and blood pressure 146/67. GENERAL: The patient is awake, alert, and oriented, in no acute distress. CARDIOVASCULAR: Regular rate and rhythm without murmurs, gallops, or rubs. LUNGS: Clear to auscultation bilaterally without wheezing or rhonchi. ABDOMEN: Soft, nontender, and nondistended with bowel sounds present. EXTREMITIES: There is no clubbing, cyanosis, or edema. MUSCULOSKELETAL: The patient has tenderness to palpation in her lumbar spine and right paraspinal muscles. PSYCHIATRIC: The patient displays an appropriate mood and affect, though is in noticeable pain. ASSESSMENT AND PLAN: 1. Osteomyelitis of the lumbar spine: We will continue IV vancomycin and Rocephin. Vanc troughs are therapeutic. The patient's new stop date for IV antibiotics is March 03. 2. Intractable back pain: The patient is taking all of her pain medications and muscle relaxers that are available to her. 3. Deconditioning: The patient continues to benefit from therapy. 4. Hypertension: Blood pressure is a little bit elevated today, but I think this is secondary to increased pain. 5. Hypothyroidism: Continue supplementation. Job ID: [id number]
[2019-02-13] MEDS: Ibuprofen 200 MG TAB PO PRN (12:23)
[2019-02-13] MEDS: Ondansetron ODT 4 MG TAB PO PRN (15:17)
[2019-02-13] MEDS: HYDROcodone/Acetaminophen 10/325 mg Tablet PO PRN (15:18)
[2019-02-13] MEDS: cefTRIAXone\\ROCEPHIN 2 GM VIAL IVPB SCH (20:45)
[2019-02-13] MEDS: Amlodipine 10 MG TAB PO SCH (20:46)
[2019-02-14] MEDS: Ibuprofen 200 MG TAB PO PRN ×2 (04:00→21:05)
[2019-02-14] MEDS: Levothyroxine Sodium 100 MCG TAB PO SCH (05:25)
[2019-02-14] MEDS: Baclofen 10 MG TAB PO SCH ×2 (08:33→21:05)
[2019-02-14] MEDS: Enoxaparin Sodium 40 MG/0.4 ML SYRINGE SC SCH (08:33)
[2019-02-14] MEDS: Chlorthalidone 25 MG TAB PO SCH (08:34)
[2019-02-14] MEDS: Lisinopril 20 MG TAB PO SCH (08:34)
[2019-02-14] MEDS: Docusate 100 MG CAP PO SCH (08:34)
[2019-02-14] MEDS: hydrALAZINE 25 MG TAB PO SCH ×3 (08:35→21:06)
[2019-02-14] MEDS: Diazepam 5 MG TAB PO PRN ×2 (08:36→16:34)
[2019-02-14] MEDS: Vancomycin HCl 1 GM in Sodium Chloride 0.9% 250 ML 250 ML IVPB SCH ×2 (11:54→23:39)
[2019-02-14] MEDS: Amlodipine 10 MG TAB PO SCH (21:06)
[2019-02-14] MEDS: cefTRIAXone\\ROCEPHIN 2 GM VIAL IVPB SCH (21:07)
[2019-02-15] MEDS: Levothyroxine Sodium 100 MCG TAB PO SCH (05:25)
[2019-02-15] MEDS: Baclofen 10 MG TAB PO SCH ×2 (08:31→21:09)
[2019-02-15] MEDS: Lisinopril 20 MG TAB PO SCH (08:31)
[2019-02-15] MEDS: Chlorthalidone 25 MG TAB PO SCH (08:31)
[2019-02-15] MEDS: Docusate 100 MG CAP PO SCH (08:31)
[2019-02-15] MEDS: hydrALAZINE 25 MG TAB PO SCH ×3 (08:32→21:10)
[2019-02-15] MEDS: Enoxaparin Sodium 40 MG/0.4 ML SYRINGE SC SCH (08:32)
[2019-02-15] MEDS: Diazepam 5 MG TAB PO PRN ×2 (08:33→21:09)
[2019-02-15] MEDS: Vancomycin HCl 1 GM in Sodium Chloride 0.9% 250 ML 250 ML IVPB SCH (11:16)
[2019-02-15] MEDS: Ibuprofen 200 MG TAB PO PRN (14:54)
[2019-02-15] MEDS: cefTRIAXone\\ROCEPHIN 2 GM VIAL IVPB SCH (21:09)
[2019-02-15] MEDS: Amlodipine 10 MG TAB PO SCH (21:09)
[2019-02-16] MEDS: Vancomycin HCl 1 GM in Sodium Chloride 0.9% 250 ML 250 ML IVPB SCH ×3 (00:45→16:56)
[2019-02-16] MEDS: Ibuprofen 200 MG TAB PO PRN ×2 (04:14→12:46)
[2019-02-16] MEDS: Levothyroxine Sodium 100 MCG TAB PO SCH (05:20)
[2019-02-16] MEDS: Baclofen 10 MG TAB PO SCH ×2 (08:41→19:59)
[2019-02-16] MEDS: Docusate 100 MG CAP PO SCH (08:41)
[2019-02-16] MEDS: Enoxaparin Sodium 40 MG/0.4 ML SYRINGE SC SCH (08:42)
[2019-02-16] MEDS: Lisinopril 20 MG TAB PO SCH (08:42)
[2019-02-16] MEDS: hydrALAZINE 25 MG TAB PO SCH ×3 (08:42→20:00)
[2019-02-16] MEDS: Chlorthalidone 25 MG TAB PO SCH (08:42)
[2019-02-16] MEDS: Diazepam 5 MG TAB PO PRN (08:43)
[2019-02-16 10:50] LABS: Vancomycin, Trough 23.1 ug/mL
--- NOTE | 2019-02-16 13:30 | PRG ---
DATE OF SERVICE: 02/16/2019 SUBJECTIVE: The patient is a 63-year-old female, who is undergoing IV antibiotics for osteomyelitis of the lumbar spine. She saw Dr. Berumen last week, who has recommended extending her antibiotics until 03/03. I am asked to see her if she is not yet back to normal. Over the weekend, she states she has been feeling a little bit better. She refused her chlorthalidone this morning, she thinks this is why she is not sleeping well at night. OBJECTIVE: VITAL SIGNS: Temperature 97.9, pulse 66, respiratory rate 18, O2 saturation 96% on room air, blood pressure 123/66. GENERAL: The patient is awake, alert, oriented, in no acute distress. CARDIOVASCULAR: Regular rate and rhythm without murmurs, gallops, or rubs. LUNGS: Clear to auscultation bilaterally without wheezing or rhonchi. ABDOMEN: Soft, nontender, nondistended with bowel sounds present. EXTREMITIES: There is no clubbing, cyanosis, or edema. PSYCHIATRIC: The patient displays an appropriate mood and affect. LABORATORY DATA: Vancomycin trough 23.1. ASSESSMENT AND PLAN: 1. Osteomyelitis of the lumbar spine at L2-L3: The patient will continue on vancomycin and Rocephin. The patient's vancomycin is therapeutic. She needs IV antibiotics until 03/03. We are trying to get insurance authorization to cover her stay through 03/03 as it is very difficult to set up outpatient antibiotics in this location, especially when she needs it more than once a day. 2. Back pain: We will continue current pain medications as this may seem to be helping. 3. Deconditioning: She continues to improve with therapy. 4. Hypertension: The patient has refused chlorthalidone. I will stop this, and we will monitor her blood pressure. We may need to adjust her amlodipine dose again. 5. Hypothyroidism: Continue supplementation. Job ID: [id number]
[2019-02-16] MEDS: cefTRIAXone\\ROCEPHIN 2 GM VIAL IVPB SCH (19:57)
[2019-02-16] MEDS: HYDROcodone/Acetaminophen 10/325 mg Tablet PO PRN (19:57)
[2019-02-16] MEDS: Amlodipine 10 MG TAB PO SCH (19:58)
[2019-02-17] MEDS: Ibuprofen 200 MG TAB PO PRN ×2 (03:32→12:55)
[2019-02-17] MEDS: Vancomycin HCl 1 GM in Sodium Chloride 0.9% 250 ML 250 ML IVPB SCH ×2 (05:13→16:46)
[2019-02-17] MEDS: Levothyroxine Sodium 100 MCG TAB PO SCH (05:13)
[2019-02-17] MEDS: hydrALAZINE 25 MG TAB PO SCH ×3 (08:11→20:47)
[2019-02-17] MEDS: Docusate 100 MG CAP PO SCH (08:11)
[2019-02-17] MEDS: Baclofen 10 MG TAB PO SCH ×2 (08:11→20:47)
[2019-02-17] MEDS: Enoxaparin Sodium 40 MG/0.4 ML SYRINGE SC SCH (08:11)
[2019-02-17] MEDS: Lisinopril 20 MG TAB PO SCH (08:11)
[2019-02-17] MEDS: Diazepam 5 MG TAB PO PRN ×2 (08:12→20:47)
--- NOTE | 2019-02-17 10:17 | PRG ---
DATE OF SERVICE: 02/17/2019 SUBJECTIVE: The patient is undergoing IV antibiotic therapy for osteomyelitis of the lumbar spine until March 03. We are waiting to hear back on insurance as to whether she is approved to stay for the two remaining weeks. The patient's diastolic blood pressure is mildly elevated this morning, which is expected since her chlorthalidone was stopped yesterday. The patient states that she slept much better and she did not wake up, gasping for air due to dry mouth since stopping the diuretic. OBJECTIVE: VITAL SIGNS: Temperature 97.6, pulse 61, respiration rate 18, O2 saturation 96% on room air, blood pressure 138/91. GENERAL: The patient is awake, alert, oriented, and in no acute distress. CARDIOVASCULAR: Regular rate and rhythm without murmurs, gallops, or rubs. LUNGS: Clear to auscultation bilaterally without wheezing or rhonchi. ABDOMEN: Soft, nontender, nondistended, with bowel sounds present. EXTREMITIES: There is no clubbing, cyanosis, or edema. PSYCHIATRIC: The patient displays an appropriate mood and affect. ASSESSMENT AND PLAN: 1. Osteomyelitis of the lumbar spine at L2-L3: The patient is continuing vancomycin and Rocephin. Stop date for antibiotics is on March 03. She is due for repeat labs in two days to monitor her CRP and other labs. 2. Back pain: The patient's back pain continues to improve. It is controlled with her current pain medicine regimen. 3. Deconditioning: The patient continues to benefit from therapy and is able to sit up in a chair longer these days. 4. Hypertension: We will keep a close eye on the blood pressure. We may have to increase her Norvasc if her blood pressure starts increasing. 5. Hypothyroidism: Continue supplementation. Job ID: [id number]
[2019-02-17] MEDS: Amlodipine 10 MG TAB PO SCH (20:46)
[2019-02-17] MEDS: cefTRIAXone\\ROCEPHIN 2 GM VIAL IVPB SCH (20:46)
[2019-02-18] MEDS: Levothyroxine Sodium 100 MCG TAB PO SCH (04:28)
[2019-02-18] MEDS: Vancomycin HCl 1 GM in Sodium Chloride 0.9% 250 ML 250 ML IVPB SCH ×2 (04:28→17:48)
[2019-02-18] MEDS: Enoxaparin Sodium 40 MG/0.4 ML SYRINGE SC SCH (08:32)
[2019-02-18] MEDS: Lisinopril 20 MG TAB PO SCH (08:33)
[2019-02-18] MEDS: Docusate 100 MG CAP PO SCH (08:33)
[2019-02-18] MEDS: Baclofen 10 MG TAB PO SCH ×2 (08:33→20:34)
[2019-02-18] MEDS: hydrALAZINE 25 MG TAB PO SCH ×3 (08:34→20:35)
[2019-02-18] MEDS: HYDROcodone/Acetaminophen 10/325 mg Tablet PO PRN ×2 (08:34→14:38)
[2019-02-18] MEDS: Ibuprofen 200 MG TAB PO PRN ×2 (11:22→20:36)
--- NOTE | 2019-02-18 13:40 | PRG ---
DATE OF SERVICE: 02/18/2019 SUBJECTIVE: The patient is resting comfortably in bed. The patient's last day of the hospital will be tomorrow and we are working on arranging outpatient antibiotics. At this time, we are trying to figure out which is more financially feasible whether she comes as an outpatient to the hospital for her infusions twice a day or is able to get them at home. OBJECTIVE: VITAL SIGNS: Temperature 98.1, pulse 62, respiration rate 16, O2 saturation 98% on room air, and blood pressure 143/94. GENERAL: The patient is awake, alert, and oriented, in no acute distress. CARDIOVASCULAR: Regular rate and rhythm without murmurs, gallops, or rubs. LUNGS: Clear to auscultation bilaterally without wheezing or rhonchi. ABDOMEN: Soft, nontender, and nondistended, with bowel sounds present. EXTREMITIES: There is no clubbing, cyanosis, or edema. PSYCHIATRIC: The patient displays an appropriate mood and affect. ASSESSMENT AND PLAN: 1. Osteomyelitis of the lumbar spine: We will continue IV vanc and Rocephin until March 03. I will continue weekly labs and we will draw some tomorrow morning. The patient will follow up with Dr. Berumen for the conclusion of her antibiotics. We will also repeat an MRI of the lumbar spine. 2. Back pain: She is controlled with her current regimen and we will continue this when she goes home. 3. Deconditioning: The patient has improved with therapy and she feels like she would be safe to go home at this time. 4. Hypertension: Blood pressure is mildly elevated, which is expected since we had to stop her chlorthalidone. I am going to adjust her amlodipine dose. 5. Hypothyroidism: Continue supplementation. Job ID: [id number]
[2019-02-18 16:29] LABS: Vancomycin, Trough 20.7 ug/mL
[2019-02-18] MEDS: cefTRIAXone\\ROCEPHIN 2 GM VIAL IVPB SCH (20:33)
[2019-02-18] MEDS ORDERED: Amlodipine 10 MG TAB PO SCH (21:00)
[2019-02-19] MEDS: Levothyroxine Sodium 100 MCG TAB PO SCH (04:55)
[2019-02-19] MEDS: Vancomycin HCl 1 GM in Sodium Chloride 0.9% 250 ML 250 ML IVPB SCH (04:55)
[2019-02-19] MEDS: Ibuprofen 200 MG TAB PO PRN ×2 (04:56→15:18)
[2019-02-19 06:15] LABS: #Basophils 0.1 thou/uL (0.0-0.2); #Eosinphils 0.2 thou/uL (0.0-0.7); #Lymphocytes 1.7 thou/uL (1.20-3.40); #Monocytes 0.6 thou/uL (0.11-0.59); #Neutrophils 4.3 thou/uL (1.40-6.50); %Basophils 1.1 % (0.0-1.0); %Eosinophils 3.6 % (0.0-10.0); %Lymphocytes 24.8 % (21.0-51.0); %Monocytes 8.8 % (0.0-10.0); %Neutrophils 61.7 % (42.0-75.0); Hemoglobin 11.3 g/dL (12.0-16.0); Mean Corpuscular HGB CONC 33.3 g/dL (32.0-36.0); Mean Corpuscular Volume 90.2 fL (78.0-98.0); Mean Platelet Volume 7.2 fL (7.4-10.4); Platelet Count 214 thou/uL (130-400); RBC Distribution Width 13.8 % (11.5-14.5); Red Blood Cell (RBC) Count 3.76 mill/uL (4.20-5.40)
[2019-02-19 06:20] LABS: ALT (SGPT) 16 U/L (8-55); AST (SGOT) 9 U/L (5-34); Albumin 3.3 g/dL (3.4-4.8); Alkaline Phosphatase 72 U/L (40-150); Anion Gap 13 mmol/L (10-20); BUN (Urea Nitrogen) 19 mg/dL (9.8-20.1); Bilirubin, Total 0.3 mg/dL (0.2-1.2); CRP (Inflammatory) 1.63 mg/dL (= or < 0.5); Calc. Creatinine Clearance 99 mL/min (70-130); Calcium 9.2 mg/dL (7.8-10.44); Carbon Dioxide 29 mmol/L (23-31); Chloride 107 mmol/L (98-107); Estimated GFR-MDRD 51; Globulin 2.6 g/dL (2.4-3.5); Glucose 90 mg/dL (80-115); Potassium 4.6 mmol/L (3.5-5.1); Protein, Total 5.9 g/dL (6.0-8.3); Sodium 144 mmol/L (136-145)
[2019-02-19 08:24] VITALS: TEMP 97.8
[2019-02-19] MEDS: Docusate 100 MG CAP PO SCH (08:51)
[2019-02-19] MEDS: Baclofen 10 MG TAB PO SCH (08:51)
[2019-02-19] MEDS: Lisinopril 20 MG TAB PO SCH (08:52)
[2019-02-19] MEDS: Enoxaparin Sodium 40 MG/0.4 ML SYRINGE SC SCH (08:52)
[2019-02-19] MEDS: hydrALAZINE 25 MG TAB PO SCH ×2 (08:52→15:18)
[2019-02-19] MEDS: Diazepam 5 MG TAB PO PRN (08:53)
[2019-02-19 08:54] VITALS: BP 127/75
--- NOTE | 2019-02-19 10:20 | DIS ---
DATE OF ADMISSION: 01/07/2019 DATE OF DISCHARGE: 02/19/2019 DISCHARGE DIAGNOSES: 1. Osteomyelitis of the lumbar spine. 2. Deconditioning. 3. Hypertension. 4. Chronic back pain. 5. Hypothyroidism. DISCHARGE MEDICATIONS: 1. Vancomycin 1 g IV q.12 hours. 2. Rocephin 2 g IV q.24 hours. 3. Amlodipine 10 mg p.o. daily. 4. Baclofen 20 mg p.o. b.i.d. 5. Diazepam 5 mg p.o. q.i.d. p.r.n. muscle spasms. 6. Hydralazine 25 mg p.o. t.i.d. 7. [place] 10/325 one tab p.o. q.6 hours p.r.n. pain. 8. Ibuprofen 600 mg p.o. q.6 hours p.r.n. pain. 9. Levothyroxine 100 mcg p.o. q.a.m. 10. Lisinopril 40 mg p.o. daily. 11. Toprol-XL 100 mg p.o. daily. 12. Zofran 4 mg p.o. q.6 hours p.r.n. nausea. HOSPITAL COURSE: The patient is a 63-year-old female, who initially presented to [facility] for intractable back pain. She underwent an MRI, which showed osteomyelitis in the lumbar spine and was started on vancomycin and Rocephin. The patient then transitioned to [facility] for rehabilitation and long-term IV antibiotics. Initially, her stop date was going to be February 16. The patient saw Dr. Berumen with Infectious Disease on February 12, who recommended extending IV antibiotics until March 03. The patient's insurance is no longer covering an inpatient stay, and therefore, we are transitioning to outpatient antibiotics. At the time of this dictation, the patient is still deciding whether she is coming to the hospital for outpatient antibiotics or get outpatient antibiotics at home with home health. The patient worked with therapy while here and strength has improved. She will benefit from outpatient physical therapy. We will get this set up at her followup appointment. The patient will continue to get labs weekly and will follow up with Dr. Berumen. We will also order an MRI at the conclusion of her IV antibiotics on March 03. DISPOSITION: 1. Discharged home in stable condition. 2. Diet: Regular. 3. Activity: Ad leonides. 4. Followup: The patient will follow up with me within a week, and we will continue her IV antibiotics. 5. 38 minutes spent arranging discharge, examining patient, getting medications correct with her pharmacy. Job ID: [id number] [id number]
[2019-02-19] MEDS ORDERED: Vancomycin HCl 1 GM in Sodium Chloride 0.9% 250 ML 250 ML IVPB SCH (15:00)
[2019-02-19] MEDS ORDERED: cefTRIAXone\\ROCEPHIN 2 GM VIAL IVPB SCH (15:00)
== END 2019-02-19 17:50 | disposition home health service (06) | DRG 540 ==
LOC: NAV ACUTE 18:29
PROVIDERS: ADMIT Family Medicine; ATTEND Family Medicine
DX: M46.26 Osteomyelitis of vertebra, lumbar region (principal); N17.9 Acute kidney failure, unspecified; K59.00 Constipation, unspecified; B37.2 Candidiasis of skin and nail; B37.3 Candidiasis of vulva and vagina; F41.9 Anxiety disorder, unspecified; R45.1 Restlessness and agitation; I95.9 Hypotension, unspecified; R53.81 Other malaise; I10 Essential (primary) hypertension; E03.9 Hypothyroidism, unspecified; M62.830 Muscle spasm of back; M79.672 Pain in left foot; R21 Rash and other nonspecific skin eruption; B00.1 Herpesviral vesicular dermatitis; M46.46 Discitis, unspecified, lumbar region; G89.29 Other chronic pain; Z79.899 Other long term (current) drug therapy
CPT/HCPCS: 36415; 80048; 80053; 80202; 84443; 85025; 86140; J0696; J1650; J1885; J3370; J3490; J7050; Q0162

== ENCOUNTER 2019-02-26 13:46 | Outpatient (CLI) | payer OTHER ==
[2019-02-26 16:30] LABS: Vancomycin, Random 15.7 ug/mL (See Comment)
== END 2019-02-26 13:47 | disposition home or self-care (01) ==
LOC: NAV LABSP 13:46
PROVIDERS: ATTEND Internal Medicine Infectious Disease
DX: Z51.81 Encounter for therapeutic drug level monitoring (principal); M46.26 Osteomyelitis of vertebra, lumbar region; R53.1 Weakness; Z79.2 Long term (current) use of antibiotics
CPT/HCPCS: 80202

== ENCOUNTER 2019-03-03 13:59 | Outpatient (CLI) | payer OTHER ==
[2019-03-03 14:25] LABS: #Basophils 0.1 thou/uL (0.0-0.2); #Eosinphils 0.1 thou/uL (0.0-0.7); #Lymphocytes 1.8 thou/uL (1.20-3.40); #Monocytes 0.6 thou/uL (0.11-0.59); #Neutrophils 4.9 thou/uL (1.40-6.50); %Basophils 0.7 % (0.0-1.0); %Eosinophils 1.4 % (0.0-10.0); %Lymphocytes 24.5 % (21.0-51.0); %Monocytes 7.7 % (0.0-10.0); %Neutrophils 65.6 % (42.0-75.0); Hemoglobin 12.6 g/dL (12.0-16.0); Mean Corpuscular HGB CONC 32.2 g/dL (32.0-36.0); Mean Corpuscular Hemoglobin 28.8 pg (27.0-31.0); Mean Corpuscular Volume 89.6 fL (78.0-98.0); Mean Platelet Volume 8.5 fL (7.4-10.4); Platelet Count 309 thou/uL (130-400); RBC Distribution Width 13.2 % (11.5-14.5); Red Blood Cell (RBC) Count 4.36 mill/uL (4.20-5.40); White Blood Cell (WBC) Count 7.5 thou/uL (4.8-10.8)
[2019-03-03 14:31] LABS: Vancomycin, Trough 18.4 ug/mL
[2019-03-03 14:33] LABS: ALT (SGPT) 20 U/L (8-55); AST (SGOT) 12 U/L (5-34); Alkaline Phosphatase 87 U/L (40-150); Anion Gap 17 mmol/L (10-20); BUN (Urea Nitrogen) 19 mg/dL (9.8-20.1); Bilirubin, Total 0.5 mg/dL (0.2-1.2); Calc. Creatinine Clearance 0 mL/min (70-130); Calcium 9.4 mg/dL (7.8-10.44); Carbon Dioxide 25 mmol/L (23-31); Chloride 106 mmol/L (98-107); Estimated GFR-MDRD 45; Globulin 2.8 g/dL (2.4-3.5); Glucose 107 mg/dL (80-115); Potassium 3.9 mmol/L (3.5-5.1); Protein, Total 6.8 g/dL (6.0-8.3); Sodium 144 mmol/L (136-145)
[2019-03-03 15:41] LABS: Follow-up Hematology Comp? YES; Follow-up Result - Chemistry REPORT FAXED; Follow-up Result - Hematology REPORT FAXED
[2019-03-03 15:42] LABS: Follow-up Chemistry Comp? YES
== END 2019-03-03 14:00 | disposition home or self-care (01) ==
LOC: NAV LAB 13:59
PROVIDERS: ATTEND Internal Medicine Infectious Disease
DX: Z51.81 Encounter for therapeutic drug level monitoring (principal); M46.26 Osteomyelitis of vertebra, lumbar region; Z79.2 Long term (current) use of antibiotics
CPT/HCPCS: 80053; 80202; 85025; 86140

== ENCOUNTER 2021-03-18 16:00 | Emergency (ER) | payer MEDICARE, OTHER ==
[2021-03-18 16:33] LABS: #Basophils 0.1 thou/uL (0.0-0.2); #Eosinphils 0.1 thou/uL (0.0-0.7); #Lymphocytes 2.1 thou/uL (1.20-3.40); #Monocytes 0.7 thou/uL (0.11-0.59); #Neutrophils 8.9 thou/uL (1.40-6.50); %Basophils 0.7 % (0.0-1.0); %Eosinophils 0.8 % (0.0-10.0); %Lymphocytes 17.5 % (21.0-51.0); %Monocytes 5.6 % (0.0-10.0); %Neutrophils 75.4 % (42.0-75.0); Hemoglobin 14.5 g/dL (12.0-16.0); Mean Corpuscular HGB CONC 30.6 g/dL (32.0-36.0); Mean Corpuscular Hemoglobin 28.3 pg (27.0-31.0); Mean Corpuscular Volume 92.6 fL (78.0-98.0); Mean Platelet Volume 8.6 fL (7.4-10.4); Platelet Count 363 thou/uL (130-400); RBC Distribution Width 14.3 % (11.5-14.5); Red Blood Cell (RBC) Count 5.12 mill/uL (4.20-5.40); White Blood Cell (WBC) Count 11.7 thou/uL (4.8-10.8)
[2021-03-18 16:54] LABS: Lactic Acid 2.5 mmol/L (0.5-2.2)
[2021-03-18 16:58] LABS: ALT (SGPT) 24 U/L (8-55); AST (SGOT) 7 U/L (5-34); Albumin 4.1 g/dL (3.4-4.8); Alkaline Phosphatase 146 U/L (40-110); Anion Gap 15 mmol/L (10-20); BUN (Urea Nitrogen) 24 mg/dL (9.8-20.1); Bilirubin, Total 0.7 mg/dL (0.2-1.2); Calc. Creatinine Clearance 0 mL/min (70-130); Calcium 8.8 mg/dL (7.8-10.44); Carbon Dioxide 21 mmol/L (23-31); Chloride 107 mmol/L (98-107); Globulin 3.1 g/dL (2.4-3.5); Glucose 159 mg/dL (80-115); Potassium 3.9 mmol/L (3.5-5.1); Protein, Total 7.2 g/dL (5.8-8.1); Sodium 139 mmol/L (136-145)
[2021-03-18 17:45] LABS: Bilirubin Negative (Negative); Blood, Urine Negative (Negative); Glucose, Urine (Dipstick) Negative (Negative); Ketone, Urine Negative (Negative); Leukocyte Large (Negative); Nitrite Negative (Negative); Protein, Urine (Dipstick) 30 mg/dL (Neg-Trace); Urobilinogen 0.2 mg/dL (Less than 2); pH, Urine 5.5 (5.0-9.0)
[2021-03-18 17:52] LABS: Clarity Hazy (Clear)
[2021-03-18 18:02] LABS: Bacteria/HPF 4+ HPF (None Seen); RBC/HPF 0-3 HPF (0-3); WBC/HPF 21-50 HPF (0-3)
[2021-03-18 18:25] LABS: Specific Gravity, Urine 1.019 (1.002-1.036)
[2021-03-18] MEDS ORDERED: Cipro 250 MG TAB ONE (21:20)
== END 2021-03-18 21:30 | disposition home or self-care (01) ==
LOC: NAV ERS 16:00
DX: N39.0 Urinary tract infection, site not specified (principal); E86.0 Dehydration; I10 Essential (primary) hypertension; Z87.891 Personal history of nicotine dependence
CPT/HCPCS: 71045; 80053; 81003; 81015; 83605; 84484; 85025; 87077; 87086; 87186; 93005